=== PATIENT | male | born 1940 | race Caucasian/White ===

== ENCOUNTER → 2016-04-15 | Outpatient (CLI) | payer OTHER ==
[~2016-04-15] MED LIST: ASPI81TA28 PO; GLIP5TAB11 PO; HYZ/50125 PO; INSDGI SC; METF-384 PO
[2016-04-15 16:29] LABS: CHOLESTEROL/HDL RATIO 4.3
[2016-04-16 06:24] LABS: ESTIMATED AVERAGE GLUCOSE 212 mg/dl; HA1C FLAG Normal (Normal)
== END | disposition home or self-care (01) ==
LOC: C.LAB1850 14:43
PROVIDERS: ATTEND Nurse Practitioner Family
DX: E11.65 Type 2 diabetes mellitus with hyperglycemia (principal)

== ENCOUNTER → 2016-06-24 | Outpatient (CLI) | payer OTHER ==
--- NOTE | 2016-06-24 11:24 | DIAGNOSTIC IMAGING REPORT ---
CHEST 2 VIEWS ROUTINE HISTORY: DRY COUGH COMPARISON: Chest 06/09/2010. FINDINGS: No pleural effusions. No pneumothorax. Symmetric nodular densities at the lung bases favor nipple shadows. No new focal lung consolidations to suggest pneumonia. No evidence for pulmonary edema. The heart remains mildly enlarged. Stable mild mediastinal widening. IMPRESSION: No significant change compared to the prior study. No acute process. Electronically signed by: Leo Butt M.D. 06/24/2016 11:23 AM Dictated Date/Time: 06/24/2016 11:14 AM
== END | disposition home or self-care (01) ==
LOC: C.RAD 10:52
PROVIDERS: ATTEND Physician Assistant
DX: R05 Cough (principal)

== ENCOUNTER → 2016-08-19 | Outpatient (CLI) | payer OTHER ==
[2016-08-20 06:39] LABS: ESTIMATED AVERAGE GLUCOSE 214 mg/dl; HA1C FLAG Normal (Normal)
== END | disposition home or self-care (01) ==
LOC: C.LAB1850 14:51
PROVIDERS: ATTEND Nurse Practitioner Family
DX: E11.65 Type 2 diabetes mellitus with hyperglycemia (principal)

== ENCOUNTER → 2016-11-04 | Outpatient (CLI) | payer OTHER ==
--- NOTE | 2016-11-04 15:41 | ECHOCARDIOGRAM REPORT ---
*NOTICE TO RECEIVING [employer] AGENCY This information is strictly Confidential and protected under [place] law. [place] law prohibits you from making any further disclosure of this information unless further disclosure is expressly permitted by the written consent of the person to whom it pertains or is authorized by law. A general authorization for the release of medical or other information is not sufficient for this purpose. Hospital accepts no responsibility if the information is made available to any other person, INCLUDING THE PATIENT. Interpretation Summary * Name: TEOFILO WILKERSON Study Date: 11/04/2016 12:26 PM BP: 150/69 mmHg * Patient Location: [facility], [place] HR: 69 * : 1940 (M/d/yyyy) Gender: Male Height: 72 in * Age: 76 yrs Ethnicity: [place] Weight: 275 lb * Ordering Physician: Maryanne Fitzgerald * Referring Physician: Maryanne Fitzgerald PA-C * Performed By: Caroline Elliott RDCS * * Reason For Study: VALVULAR HEART DISEASE, FATIGUE, AO VALVE SCLEROSIS * BSA: 2.4 m2 * -- Conclusions -- * 1. Normal LV size, moderate concentric LVH. * 2. Normal LV systolic function. LVEF 55-60%. No regional wall motion abnormalities. * 3. Normal RV size and function. * 4. Moderate aortic sclerosis without stenosis. * 5. Grade I diastolic dysfunction. * 6. Compared with prior study on 08/06/2014: No significant changes. Procedure Details * A complete two-dimensional transthoracic echocardiogram was performed (2D, M-mode, Doppler and color flow Doppler). Left Ventricle * The left ventricle is normal in size. * There is moderate concentric left ventricular hypertrophy. * Ejection Fraction = 55-60%. * No regional wall motion abnormalities noted. Right Ventricle * The right ventricle is grossly normal size. * The right ventricular systolic function is normal as assessed by tricuspid annular plane systolic excursion (TAPSE) (normal >1.5 cm). Atria * The left atrial size is normal. * Right atrial size is normal. * No ASD detected; PFO is not assessed. Mitral Valve * The mitral valve is grossly normal. * There is no mitral valve stenosis. * Significant mitral regurgitation is absent. Tricuspid Valve * The tricuspid valve is not well visualized, but is grossly normal. * There is trace tricuspid regurgitation. Aortic Valve * The aortic valve opens well. * Aortic valve sclerosis moderate, without significant aortic valvular stenosis. * No hemodynamically significant valvular aortic stenosis. * There is no significant aortic regurgitation. Pulmonic Valve * The pulmonary valve is inadequately visualized, but the Doppler data is adequate for interpretation. * There is no pulmonic valvular stenosis. * There is no significant pulmonary regurgitation. Great Vessels * The aortic root and proximal ascending aorta are normal sized. Pericardium/Pleural * There is no pericardial effusion. Left Ventricular Diastolic Function * Grade I diastolic dysfunction, (abnormal relaxation pattern). MMode 2D Measurements and Calculations IVSd 1.6 cm IVSs 1.9 cm LVIDd 4.5 cm LVIDs 3.0 cm LVPWd 1.6 cm LVPWs 1.7 cm IVS/LVPW 1.0 FS 32.3 % EDV(Teich) 92.0 ml ESV(Teich) 36.2 ml EF(Teich) 60.6 % EDV(cubed) 90.6 ml ESV(cubed) 28.2 ml EF(cubed) 68.9 % % IVS thick 17.7 % % LVPW thick 11.1 % LV mass(C)d 301.6 grams LV mass(C)dI 123.6 grams/m\S\2 LV mass(C)s 226.1 grams LV mass(C)sI 92.7 grams/m\S\2 SV(Teich) 55.8 ml SI(Teich) 22.9 ml/m\S\2 SV(cubed) 62.4 ml SI(cubed) 25.6 ml/m\S\2 Ao root diam 3.4 cm Ao root area 9.3 cm\S\2 LA dimension 3.8 cm LA/Ao 1.1 LVAd ap4 39.9 cm\S\2 LVLd ap4 9.7 cm EDV(MOD-sp4) 134.4 ml EDV(sp4-el) 139.1 ml LVAs ap4 23.5 cm\S\2 LVLs ap4 8.5 cm ESV(MOD-sp4) 59.4 ml ESV(sp4-el) 55.6 ml EF(MOD-sp4) 55.8 % EF(sp4-el) 60.0 % LVAd ap2 45.4 cm\S\2 LVLd ap2 9.9 cm EDV(MOD-sp2) 176.7 ml EDV(sp2-el) 177.4 ml LVAs ap2 26.5 cm\S\2 LVLs ap2 8.2 cm ESV(MOD-sp2) 79.0 ml ESV(sp2-el) 73.2 ml EF(MOD-sp2) 55.3 % EF(sp2-el) 58.7 % LVLd %diff 1.5 % EDV(MOD-bp) 153.5 ml LVLs %diff -3.79 % ESV(MOD-bp) 69.7 ml EF(MOD-bp) 54.6 % SV(MOD-sp4) 75.0 ml SI(MOD-sp4) 30.8 ml/m\S\2 SV(MOD-sp2) 97.8 ml SI(MOD-sp2) 40.1 ml/m\S\2 SV(MOD-bp) 83.8 ml SI(MOD-bp) 34.4 ml/m\S\2 SV(sp4-el) 83.5 ml SI(sp4-el) 34.2 ml/m\S\2 SV(sp2-el) 104.2 ml SI(sp2-el) 42.7 ml/m\S\2 Doppler Measurements and Calculations MV E max harshil 75.7 cm/sec MV A max harshil 109.1 cm/sec MV E/A 0.69 MV dec time 0.33 sec Ao V2 max 179.2 cm/sec Ao max PG 12.8 mmHg Ao max PG (full) 7.4 mmHg Ao V2 mean 130.6 cm/sec Ao mean PG 7.4 mmHg Ao mean PG (full) 4.5 mmHg Ao V2 VTI 38.6 cm LV V1 max PG 5.4 mmHg LV V1 mean PG 2.9 mmHg LV V1 max 116.5 cm/sec LV V1 mean 80.5 cm/sec LV V1 VTI 23.2 cm SV(Ao) 357.7 ml SI(Ao) 146.6 ml/m\S\2
== END | disposition home or self-care (01) ==
LOC: C.CPL 12:21
PROVIDERS: ATTEND Physician Assistant
DX: R53.83 Other fatigue (principal); I35.8 Other nonrheumatic aortic valve disorders

== ENCOUNTER → 2016-12-21 | Outpatient (CLI) | payer OTHER ==
[2016-12-21 16:30] LABS: BLOOD UREA NITROGEN 24 mg/dl (7-18); BUN/CREATININE RATIO 24.5 (10-20); CALCIUM 8.9 mg/dl (8.5-10.1); CARBON DIOXIDE 28 mmol/L (21-32); CHLORIDE 102 mmol/L (98-107); CREATININE 0.99 mg/dl (0.60-1.40); GLUCOSE 204 mg/dl (70-99); POTASSIUM 3.8 mmol/L (3.5-5.1); SODIUM 138 mmol/L (136-145)
[2016-12-21 16:41] LABS: THYROID STIMULATING HORMONE 0.399 uIu/ml (0.300-4.500)
[2016-12-21 18:02] LABS: RATIO 14.9 mcg/mg (0-30.0)
[2016-12-21 18:35] LABS: ESTIMATED AVERAGE GLUCOSE 192 mg/dl; HA1C FLAG Normal (Normal)
== END | disposition home or self-care (01) ==
LOC: C.LAB1850 15:27
PROVIDERS: ATTEND Nurse Practitioner Family
DX: E11.49 Type 2 diabetes mellitus with other diabetic neurological complication (principal)

== ENCOUNTER → 2017-11-17 | Outpatient (CLI) | payer OTHER ==
--- NOTE | 2017-11-17 12:32 | DIAGNOSTIC IMAGING REPORT ---
ULTRASOUND OF THE THYROID GLAND CLINICAL HISTORY: Abnormal thyroid gland imaging. COMPARISON STUDY: Chest CT dated 09/03/2017. TECHNIQUE: Real-time, grayscale, and color flow sonography of the thyroid gland is performed utilizing a high-frequency linear transducer. Images are reviewed in the transverse and longitudinal planes. FINDINGS: Right lobe: The right lobe of the thyroid gland is normal in size and heterogeneous in echotexture, measuring 5.2 x 3.3 x 3.0 cm. Scattered tiny calcifications are noted. Left lobe: The left lobe of the thyroid gland is normal in size and heterogeneous in echotexture, measuring 4.2 x 2.1 x 2.6 cm. Isthmus: The thyroid isthmus appears mildly thickened and heterogeneous, measuring 0.6 cm in AP diameter. IMPRESSION: 1. The thyroid gland is normal in size and heterogeneous in echotexture. Correlation with serum thyroid function studies is recommended. 2. No discrete thyroid lesion is identified. Electronically signed by: Rashid Curtis M.D. 11/17/2017 12:30 PM Dictated Date/Time: 11/17/2017 12:28 PM
== END | disposition home or self-care (01) ==
LOC: C.ULTR 11:34
PROVIDERS: ATTEND Physician Assistant
DX: R93.8 Abnormal findings on diagnostic imaging of other specified body structures (principal)

== ENCOUNTER 2022-10-10 19:14 | Inpatient (IN) ==
[2022-10-10] MEDS ORDERED: SODIUM CHLORIDE 0.9% 1000ML 1,000 ML IV STA (19:40)
[2022-10-10] MEDS ORDERED: fentaNYL citrate PF 100 MCG/2 ML VIAL IV STA (19:40)
[2022-10-10] MEDS ORDERED: ONDANSETRON INJ 2 MG/ML 2 ML VIAL IV STA (19:40)
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
[2022-10-10 20:02] LABS: Hematocrit (blood only) 46.2 % (42.0-52.0); Hemoglobin 15.1 g/dl (14.0-18.0); Mean Corpuscular Hemoglobin 28.3 pg (25.0-34.0); Mean Corpuscular Hgb Conc 32.7 g/dL (32.0-36.0); Mean Corpuscular Volume 86.5 fL (80.0-100.0); Mean Platelet Volume 10.7 fL (9.4-12.4); Platelet Count 195 K/uL (130-400); RDW Standard Deviation 44.5 fL (36.4-46.3); Red Blood Count 5.34 M/uL (4.70-6.10); White Blood Count 9.77 K/ul (4.8-10.8)
--- NOTE | 2022-10-10 20:15 | XRay Report ---
XR chest 1V portable HISTORY: 82 years-old Male cough acute cough COMPARISON: 11/07/2020 TECHNIQUE: AP view of the chest FINDINGS: Cardiac silhouette is enlarged. Moderate right pleural effusion with right basilar consolidation. Ath erosclerosis of the aorta. No pneumothorax or overt pulmonary edema. The left lung is generally clear . Cervical spinal fusion hardware. Degenerative changes of the shoulders and spine. IMPRESSION: 1. Moderate right pleural effusion with right basilar consolidation. 2. Cardiomegaly without overt pulmonary edema. ACT 112: Negative or not required by law. The above report was generated using voice recognition software. It may contain grammatical, syntax o r spelling errors. Electronically signed by: Cheo Shi M.D. 10/10/2022 8:14 PM
[2022-10-10 20:24] LABS: Albumin Level 4.4 gm/dl (3.4-5.0); Anion Gap 10 (3-11); Calcium 9.7 mg/dl (8.6-10.3); Carbon Dioxide 28 mmol/L (21-32); Chloride 106 mmol/L (98-107); Potassium 3.3 mmol/L (3.5-5.1); Sodium 144 mmol/L (136-145)
[2022-10-10 20:30] LABS: BUN Creatinine Ratio 28.5 (10-20); Blood Urea Nitrogen 35 mg/dl (6-23); Est GFR (African American) 63.4 ml/min; Est GFR (Non-African American) 54.7 ml/min; Glucose 164 mg/dl (70-99(Fasting)); Troponin I High Sensitivity 12.5 pg/ml (0-20)
[2022-10-10] MEDS ORDERED: OPTIRAY 320 100ml IV ONE (20:47)
[2022-10-10 21:22] LABS: Appearance Urine Cloudy (Clear); Bacteria Urine Automated 4+ (Negative); Bilirubin Urine Negative (Negative); Blood Urine 2+ (Negative); Color Urine Dark Yellow; Epithelial Cell Urine Auto 0-5 /lpf (0-5); Glucose Urine UA Trace (Negative); Ketones Urine Trace (Negative); Leukocyte Esterase Urine Trace (Negative); Nitrite Urine Positive (Negative); Protein Urine 2+ (Negative); RBC Urine Automated 0-4 /hpf (0-4); Specific Gravity Urine > 1.045 (1.000-1.030); Urobilinogen Urine Negative (Negative); WBC Urine Automated >30 /hpf (0-5); pH Urine 5.5 (4.5-7.5)
[2022-10-10 21:27] LABS: Influenza A virus by PCR Negative (Neg); Influenza B virus by PCR Negative (Neg); RSV by PCR Negative (Neg); SARS CoV2 RNA(COVID-19) Ceph NEGATIVE (Negative)
[2022-10-10 21:28] LABS: Lipase < 3 U/L (11-82)
[2022-10-10 21:29] LABS: Alanine Aminotransferase 9 U/L (7-52); Albumin Globulin Ratio 1.3 (0.9-2); Alkaline Phosphatase 83 U/L (34-104); Aspartate Aminotransferase 13 U/L (13-39); Globulin 3.5 gm/dl (2.5-4.0); Total Protein 7.9 gm/dl (6.0-8.3)
[2022-10-10] MEDS ORDERED: PIPERACILLIN/TAZOBACTAM 4.5 GM/120 ML BAG IV ONE (21:51)
[2022-10-10 22:02] LABS: Basophils # (auto) 0.04 K/uL (0-0.2); Basophils % (auto) 0.4 %; Eosinophils # (auto) 0.02 K/uL (0-0.50); Eosinophils % (auto) 0.2 %; Immature Granulocytes # (auto) 0.04 K/uL (0.01-0.20); Immature Granulocytes % (auto) 0.4 %; Lymphocytes % (auto) 6.1 %; Monocytes # (auto) 0.79 K/uL (0.11-0.59); Monocytes % (auto) 8.1 %; Neutrophils # (auto) 8.28 K/uL (1.40-6.50); Neutrophils % (auto) 84.8 %
--- NOTE | 2022-10-10 22:41 | CT Scan Report ---
Exam(s): CT ABDOMEN + PELVIS With Contrast IV Amt: 94ML OPITRAY 320 EXAM: CT Abdomen and Pelvis With Intravenous Contrast CLINICAL HISTORY: Pain and nausea. TECHNIQUE: Axial computed tomography images of the abdomen and pelvis with intravenous contrast. CTDI is 27.91 mGy and DLP is 1481.01 mGy-cm. Automated exposure control was utilized for the study. A dose lowering technique was utilized adhering to the principles of ALARA. CONTRAST: Patient received 94ML OPITRAY 320 of IV contrast COMPARISON: CT abdomen and pelvis 06/10/2018 FINDINGS: Lung bases: Moderate right airspace opacity with adjacent atelectasis. ABDOMEN: Liver: Unremarkable. No mass. Gallbladder and bile ducts: Unremarkable. No calcified stones. No ductal dilation. Pancreas: Unremarkable. No mass. No ductal dilation. Spleen: Unremarkable. No splenomegaly. Adrenals: Unremarkable. No mass. Kidneys and ureters: There is a simple right renal cyst. There is a hyperdense right renal cyst measuring 2.2 cm. No hydronephrosis. Stomach and bowel: Small bowel obstruction with a transition point in the left lower quadrant pain No mucosal thickening. PELVIS: Appendix: No findings to suggest acute appendicitis. Bladder: Unremarkable. No mass. Reproductive: Unremarkable as visualized. ABDOMEN and PELVIS: Intraperitoneal space: Unremarkable. No free air. No significant fluid collection. Bones/joints: There are degenerative changes of the spine. No fracture. No dislocation. Soft tissues: Unremarkable. Vasculature: Moderate atherosclerosis. No abdominal aortic aneurysm. Lymph nodes: Unremarkable. No enlarged lymph nodes. IMPRESSION: 1. Small bowel obstruction with a transition point in the left lower quadrant pain 2. There is a hyperdense right renal cyst measuring 2.2 cm. This is new since the prior examination. This is concerning for neoplasm. 3. Moderate right airspace opacity with adjacent atelectasis. Communications: Call Doctor Pneumoperitoneum, new or unexpected Electronically signed by: Emmie Nash MD 10/10/22 22:40 PM
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
[2022-10-11 00:43] LABS: Phosphorus 2.7 mg/dl (2.5-4.9)
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
[2022-10-11] MEDS ORDERED: DEXTROSE 50% 50 ML SYRINGE IV PRN (02:49)
[2022-10-11] MEDS ORDERED: GLUCOSE 40% GEL 15 GM TUBE PO PRN (02:49)
[2022-10-11] MEDS ORDERED: PHARMACY GLYCEMIC MGMT CONSULT PRN (02:49)
[2022-10-11] MEDS ORDERED: NITROGLYCERIN SL 0.4 MG/TAB TAB SL PRN (02:49)
[2022-10-11] MEDS ORDERED: GLUCOSE 10 TAB/TUBE PO PRN (02:49)
[2022-10-11] MEDS ORDERED: CARBOHYDRATES FOR HYPOGLYCEMIA PO PRN (02:49)
[2022-10-11] MEDS ORDERED: ONDANSETRON INJ 2 MG/ML 2 ML VIAL IV PRN ×2 (02:49→09:43)
[2022-10-11] MEDS ORDERED: GLUCAGON FOR INJ 1 MG VIAL SQ PRN (02:49)
[2022-10-11] MEDS ORDERED: INSULIN ASPART PER UNIT CHARGE SC SCH (02:49)
[2022-10-11] MEDS: SODIUM CHLORIDE 0.9% 1000ML 1,000 ML IV SCH ×4 (02:52→23:55)
[2022-10-11] MEDS: DOXYCYCLINE HYCLATE 100 MG in DEXTROSE 5% 100 ML IV SCH ×2 (04:34→15:27)
[2022-10-11] MEDS: INSULIN ASPART PER UNIT CHARGE SC SCH ×4 (05:55→23:56)
--- NOTE | 2022-10-11 06:01 | Surgery Progress Note ---
Date of Service October 11, 2022 Assessment & Plan (1) Small bowel obstruction: Plan: The patient has been admitted on the hospitalist service. From a surgical perspective we recommend the following: Continue n.p.o. status Continue NG tube to low continuous suction. This can be removed once patient has improvement of his abdominal exam and return of bowel function. Oral intake can be advanced beginning with sips of clear liquids once NG tube is able to be removed Continue IV fluids for hydration while n.p.o. Continue analgesics Continue antiemetics Patient is receiving antibiotics in the form of Zosyn and doxycycline for underlying pneumonia as well as urinary tract infection. Antibiotics to be further tailored based on culture data once available Patient is noted to have a renal lesion measuring 2.2 cm on the right kidney. The patient notes that he does have outpatient follow-up arranged with Dr. Tomasz Goodwin of [facility]. Lovenox is in place for DVT prevention Additional recommendations to be forthcoming based on his clinical course as it unfolds Admission and Anticipated Discharge Date Admission Date: October 11, 2022 Supervising Physician Co-Signing Physician Notes Dr. Crabtree seems to be stable but his abdomen is very distended-he had significant output from his NG for severe gastric distention This is likely because of his small bowel obstruction-we will check a KUB I am concerned we may need to proceed with surgery today depending on his KUB and status I will discuss this with his daughterTammy We will hold his Lovenox for now Subjective Patient is currently resting comfortably in bed. He notes his breathing feels comfortable at the present time. He notes that since NG tube been placed he has had some improvement of his abdominal symptomatology. He does deny any worsening abdominal pain. Since admission he has not passed any flatus or had a bowel movement. Review of Systems Gastrointestinal: Abdomen is rotund with mild distention. It is nonrigid. There is no rebound tenderness or guarding. There is minimal pain with palpation. NG tube is in place and is drained 1700 cc since insertion. Results & Data Vital Signs (Past 12 Hours) Vital Signs Temp Pulse Pulse Resp BP BP Pulse Ox 10/11/22 02:49 10/11/22 02:49 36.9 C 59 L 20 151/69 H 96 10/11/22 02:12 10/10/22 23:40 89 10/11/22 00:34 90 20 115/65 97 10/10/22 22:14 90 20 160/99 H 95 10/10/22 19:38 82 10/10/22 20:34 85 19 95 10/10/22 20:34 19 88 L 10/10/22 19:55 78 18 168/92 H 96 10/10/22 19:55 94 10/10/22 19:20 95 10/10/22 19:14 36.8 C 84 20 119/77 95 O2 Del Method O2 Flow Rate 10/11/22 02:49 Oxymask 4 10/11/22 02:49 Oxymask 4 10/11/22 02:12 Oxymask 4 10/10/22 23:40 10/11/22 00:34 Oxymask 4 10/10/22 22:14 Nasal Cannula 2 10/10/22 19:38 10/10/22 20:34 Nasal Cannula 2 10/10/22 20:34 Room Air 10/10/22 19:55 Room Air 10/10/22 19:55 Room Air 10/10/22 19:20 Room Air 10/10/22 19:14 Room Air PG Care Time/CCT Total # of Minutes Spent Total Time Spent with Patient: Total time spent is greater than 50% in coordination of care (as documented) at patient's floor/unit and/or counseling patient: Coding Level of Care Code 09399 SUB INP/OBS CARE 04/29MIN Diagnoses Small bowel obstruction K56.609
--- NOTE | 2022-10-11 06:21 | Pharmacy Report ---
Pharmacy Glycemic Short Note 2 - Date of Service October 11, 2022 - Glycemic Short BSG Results (Last 24 hours): 10/10/22 10/11/22 10/11/22 19:29 03:48 05:44 Glucose 164 H POC Glucose 102 H 105 H OUTPATIENT ANTIDIABETIC REGIMEN: * Novolin 70/30 38 units SQ qAM, 48 units SQ qPM * HbA1c: pending w/ AM labs (8.2% 01/2020) ASSESSMENT: * Mr Castillo is an 82yo diabetic M admitted with SBO. * He is ordered IV Zosyn and doxycycline and is currently NPO. * BSGs have been below goal thus far. Will use Novolog only for now and initiate some NPH once BSGs above/within goal. * Pharmacy will continue to follow and adjust regimen as indicated. PLAN FOR INPATIENT GLYCEMIC CONTROL: * Basal insulin * NPH -- dosing to be determined pending BSG trend/NPO status * Bolus insulin * NovoLog per scale ACHS or Q6hrs while NPO * Goal Range: Low 110 mg/dL - High 150 mg/dL * Correction Factor: 20 mg/dL/unit * Nutritional / Prandial insulin per carb ratio of 1 unit per 8 grams CHO c onsumed
[2022-10-11 06:42] LABS: Hematocrit (blood only) 43.2 % (42.0-52.0); Hemoglobin 14.3 g/dl (14.0-18.0); Mean Corpuscular Hemoglobin 28.4 pg (25.0-34.0); Mean Corpuscular Hgb Conc 33.1 g/dL (32.0-36.0); Mean Corpuscular Volume 85.7 fL (80.0-100.0); Mean Platelet Volume 10.7 fL (9.4-12.4); Platelet Count 177 K/uL (130-400); RDW Coefficient of Variation 14.1 % (11.5-14.5); RDW Standard Deviation 43.6 fL (36.4-46.3); Red Blood Count 5.04 M/uL (4.70-6.10); White Blood Count 6.29 K/ul (4.8-10.8)
[2022-10-11] MEDS: PIPERACILLIN/TAZOBACTAM 4.5 GM in DEXTROSE 5% 100 ML IV SCH ×3 (06:55→21:18)
[2022-10-11 07:01] LABS: BUN Creatinine Ratio 34.3 (10-20); Creatinine Clr Calc Pharmacy 73.5 ml/min; Est GFR (African American) 79.5 ml/min; Est GFR (Non-African American) 68.6 ml/min; Potassium 3.1 mmol/L (3.5-5.1)
--- NOTE | 2022-10-11 07:05 | Electrocardiogram Report ---
Test Reason : Blood Pressure : / mmHG Vent. Rate : 087 BPM Atrial Rate : 087 BPM P-R Int : 206 ms QRS Dur : 106 ms QT Int : 388 ms P-R-T Axes : 093 -10 073 degrees QTc Int : 466 ms Sinus rhythm with frequent Premature ventricular complexes Minimal voltage criteria for LVH, may be normal variant Poor R wave progression, consider anterior MD vs. lead placement vs. LVH Abnormal ECG When compared with ECG of 07-NOV-2020 15:50, Premature ventricular complexes are now Present ND interval has decreased T wave inversion now evident in Lateral leads Confirmed by Shay Caban ([id number]) on 10/11/2022 7:05:43 AM Referred By: REFERRED SELF Confirmed By:Farooq Caban
[2022-10-11 07:08] LABS: Troponin I High Sensitivity 16.9 pg/ml (0-20)
[2022-10-11 07:09] LABS: Basophils # (auto) 0.02 K/uL (0-0.2); Basophils % (auto) 0.3 %; Immature Granulocytes # (auto) 0.01 K/uL (0.01-0.20); Immature Granulocytes % (auto) 0.2 %; Lymphocytes # (auto) 0.37 K/uL (1.2-3.4); Lymphocytes % (auto) 5.9 %; Monocytes # (auto) 0.98 K/uL (0.11-0.59); Monocytes % (auto) 15.6 %; Neutrophils # (auto) 4.91 K/uL (1.40-6.50)
--- NOTE | 2022-10-11 08:15 | XRay Report ---
KUB HISTORY: Acute generalized abdominal pain verify NG tube placement COMPARISON: CT of same day FINDINGS: Persistent small bowel obstruction. Status post placement of an enteric tube with distal ti p projecting over the gastric body. Cardiomegaly with right pleural effusion and right greater than l eft bibasilar consolidation. No renal calculi. No ureteral calculi. No pneumoperitoneum or pneumatos is. No fracture. IMPRESSION: 1. Status post placement of enteric tube with distal tip projected over the gastric body. 2. Persistent small bowel obstruction. 3. Right pleural effusion with right basilar predominant consolidation. ACT 112: Negative or not required by law. The above report was generated using voice recognition software. It may contain grammatical, syntax o r spelling errors. Electronically signed by: Cheo Shi M.D. 10/11/2022 8:14 AM
--- NOTE | 2022-10-11 08:17 | XRay Report ---
KUB HISTORY: Persistent small bowel obstruction r/o sbo COMPARISON: KUB 10/10/2022 FINDINGS: Persistent small bowel obstruction, now with small bowel loops measuring up to 5.5 cm, prev iously 5.0 cm. Status post placement of an enteric tube with distal tip projecting over the gastric b sissy. Decreased gaseous distention of the stomach. Cardiomegaly with right pleural effusion and right greater than left bibasilar consolidation. No renal calculi. No ureteral calculi. No pneumoperitoneu m or pneumatosis. Contrast noted within the urinary bladder lumen. Urinary bladder diverticulum may b e sequela of chronic bladder outlet obstruction. No fracture. IMPRESSION: 1. Enteric tube terminates within the stomach. 2. Persistent small bowel obstruction with mildly progressed small bowel distention. 3. Right pleural effusion with right basilar predominant consolidation. ACT 112: Negative or not required by law. The above report was generated using voice recognition software. It may contain grammatical, syntax o r spelling errors. Electronically signed by: Cheo Shi M.D. 10/11/2022 8:15 AM
[2022-10-11] MEDS ORDERED: fentaNYL citrate PF 100 MCG/2 ML VIAL ONE (08:52)
[2022-10-11] MEDS ORDERED: ASPIRIN 81 MG CHEW PO SCH (09:00)
[2022-10-11] MEDS: POTASSIUM CHLORIDE / WTR 10 MEQ/100 ML PLCT IV SCH ×3 (09:27→10:31)
[2022-10-11] MEDS ORDERED: SUCCINYLCHOLINE CHLORIDE 20 MG/ML 10 ML VIAL IV ONE (09:40)
[2022-10-11] MEDS ORDERED: PROPOFOL IV EMULSION 10 MG/ML 20 ML VIAL IV ONE (09:40)
[2022-10-11] MEDS ORDERED: ROCURONIUM BROMIDE 10 MG/ML 5 ML VIAL IV ONE (09:40)
[2022-10-11] MEDS ORDERED: LIDOCAINE 2% 2 ML VIAL/AMP(20MG/ML) INFIL ONE (09:40)
[2022-10-11] MEDS ORDERED: ONDANSETRON INJ 2 MG/ML 2 ML VIAL ONE (09:40)
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
[2022-10-11] MEDS ORDERED: ATROPINE SULFATE 0.1 MG/ML 10ML SYR IV PRN (09:43)
[2022-10-11] MEDS ORDERED: HYDROmorphone INJ 2 MG/ML SYR/VIAL IV PRN (09:43)
[2022-10-11] MEDS ORDERED: fentaNYL citrate PF 100 MCG/2 ML VIAL IV PRN (09:43)
[2022-10-11] MEDS ORDERED: ePHEDrine sulfate 50 MG/ML AMP IV PRN (09:43)
[2022-10-11] MEDS ORDERED: PROMETHAZINE HCL 12.5 MG in SODIUM CHLORIDE 0.9% 50 ML IV PRN (09:43)
--- NOTE | 2022-10-11 09:43 | History & Physical Bridge Note ---
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
[2022-10-11] MEDS ORDERED: PHENYLEPHRINE 100MCG/ML 5ML SYR ONE (10:15)
[2022-10-11] MEDS ORDERED: ALBUTEROL HFA 8 GM INHALER INH ONE (10:24)
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
[2022-10-11] MEDS ORDERED: SUGAMMADEX SODIUM 200 MG/2 ML VIAL IV ONE (10:39)
--- NOTE | 2022-10-11 10:49 | Post Operative Brief Note ---
PG Immediate Post Op with CF Date of Surgery October 11, 2022 Pre & Post Diagnosis Operation Date: 10/11/22 14:00 Pre-Op Diagnosis: Small bowel obstruction. Post-Op Diagnosis: Small bowel obstruction. Internal hernia I identified the patient and participated in the time-out.: Yes Procedure Operation Date: 10/11/22 14:00 Actual Procedures p Abdominal exploration, lysis of adhesions, closure of internal hernia. - Abhishek San MD, FACS Surgeon Abhishek San MD, FACS Flight Control Specialist Nurses Estimated Blood Loss 10 Findings Consistent with Post-Op Diagnosis Patient has small bowel obstruction from an internal hernia within the mesentery causing severe dilation of the small bowel and hemorrhagic changes There is also some hemorrhagic change in the mesentery near this area The hernia defect was closed Small bowel was completely viable Drains March Catheter
--- NOTE | 2022-10-11 10:56 | Operative Report ---
PG Post Operative Report Pre & Post Diagnosis Operation Date: 10/11/22 14:00 Pre-Op Diagnosis: Small bowel obstruction. Post-Op Diagnosis: Small bowel obstruction. Internal hernia I identified the patient and participated in the time-out.: Yes Procedure Operation Date: 10/11/22 14:00 Actual Procedures p Abdominal exploration, lysis of adhesions, closure of internal hernia. - Abhishek San MD, FACS Surgeon Abhishek San MD, FACS Academic Affairs Manager Nurses Estimated Blood Loss 10 Findings Consistent with Post-Op Diagnosis Patient had an internal hernia within the mesentery causing a sac and obstruction of the small bowel There are hemorrhagic changes in the proximal small bowel which was severely dilated to 5.5 cm plus There is some hemorrhagic change within the mesentery also The bowel was completely viable Specimens None Description of Procedure Patient is brought in the operating room placed operative table supine position he had pneumatic stockings and nasogastric tube, March catheter was placed His abdomen was prepped and draped in usual fashion Midline incision was made above the umbilicus carried dissection down into the abdomen-encountering significant serous fluid Small bowel was severely dilated proximally to at least 5.5 cm, it was traced from the ligament of Treitz to the ileum at the cecal level Some of the bowel was hemorrhagic it was brought out onto the abdomen and upon exploration I was able to find an area of hemorrhagic change within the mesentery where there was a redundant sac causing internal hernia This area was closed by imbricating the mesentery using 0 chromic suture from the edge of the bowel down to the root of the mesentery closing the site The bowel was completely viable, no resection was necessary Because of the bowel being severely dilated I felt the decompression would be necessary-we performed an enterotomy of approximately 2 cm decompressing the bowel into a basin The enterotomy was closed in 2 layers with a seromuscular layer of running 2-0 chromic and a imbricating seromuscular layer of interrupted 3-0 silk silk The abdomen was irrigated with antibiotic solution The NG tube was replaced from a 14 Citizen [place] to a 18 Citizen [place] Fascia closed using both interrupted and running #1 PDS suture Skin reapproximated using birdie intermittently Transferred to intensive care unit in stable condition I attest to the content of the Intraoperative Record and any orders documented therein. Any exceptions are noted below.
--- NOTE | 2022-10-11 11:28 | Anesthesiology Progress Note ---
Date of Service October 11, 2022 Anesthesia Post Procedure Vital Signs Vital Signs: Temp Pulse Pulse Resp BP BP Pulse Ox 10/11/22 11:20 36.2 C L 88 24 183/91 H 95 10/11/22 11:10 88 24 175/93 H 95 10/11/22 11:03 36.0 C L 85 18 168/83 H 93 10/11/22 07:00 10/11/22 07:42 36.6 C 77 20 166/75 H 95 10/11/22 02:49 10/11/22 02:49 36.9 C 59 L 20 151/69 H 96 10/11/22 02:12 10/10/22 23:40 89 10/11/22 00:34 90 20 115/65 97 10/10/22 22:14 90 20 160/99 H 95 10/10/22 19:38 82 10/10/22 20:34 85 19 95 10/10/22 20:34 19 88 L 10/10/22 19:55 78 18 168/92 H 96 10/10/22 19:55 94 10/10/22 19:20 95 10/10/22 19:14 36.8 C 84 20 119/77 95 O2 Del Method O2 Flow Rate 10/11/22 11:20 Oxymask 5 10/11/22 11:10 Oxymask 5 10/11/22 11:03 Oxymask 5 10/11/22 07:00 Nasal Cannula 4 10/11/22 07:42 Oxymask 10/11/22 02:49 Oxymask 4 10/11/22 02:49 Oxymask 4 10/11/22 02:12 Oxymask 4 10/10/22 23:40 10/11/22 00:34 Oxymask 4 10/10/22 22:14 Nasal Cannula 2 10/10/22 19:38 10/10/22 20:34 Nasal Cannula 2 10/10/22 20:34 Room Air 10/10/22 19:55 Room Air 10/10/22 19:55 Room Air 10/10/22 19:20 Room Air 10/10/22 19:14 Room Air Pain Intensity Bilateral Chest: Pain Intensity: 9 Transfer of Care Handoff Completed per policy Notes Mental Status: alert / awake / arousable and participated in evaluation Patient Amnestic to Procedure: Yes Nausea / Vomiting: adequately controlled Pain: adequately controlled Airway Patency, RR, SpO2: stable & adequate BP & HR: stable & adequate Hydration State: stable & adequate Anesthetic Complications: no major complications apparent
[2022-10-11] MEDS: ICU Protocol for HYPERglycemia SCH ×3 (11:46→23:52)
[2022-10-11] MEDS: HYDROmorphone INJ 0.5 MG/0.5 ML SYR IV PRN ×3 (12:34→21:28)
[2022-10-11] MEDS: hydrALAZINE HCL 20 MG/ML VIAL IV PRN (12:42)
--- NOTE | 2022-10-11 14:04 | Procedure Note ---
Procedure Note Date of Service October 11, 2022 Note Procedure: Diagnostic therapeutic ultrasound-guided catheter thoracentesis Milieu Manager: Dr. Porfirio Queen Indication: Right pleural effusion Consent: Signed by patient and verified with timeout prior to procedure Anesthesia: 1% lidocaine without epinephrine local. Procedure: Consent was verified and timeout performed. Appropriate imaging studies were reviewed prior to the procedure. Patient was placed in a seated position and limited thoracic ultrasound was performed of the right chest. See separate imaging. Appropriate site above the diaphragm for thoracentesis was selected. The skin was prepped and draped in normal sterile fashion. Lidocaine was used for local analgesia. Fluid was aspirated via the finder needle. A small skin tavo was made with the scalpel and the catheter over the needle apparatus was advanced over the rib into the pleural space. Using the syringe one-way valve system, a total of 1350 mL's of creamy milky fluid was removed. The catheter was removed and observed to be intact. A sterile dressing was applied. Post procedure chest x-ray was ordered. Good lung sliding was appreciated postprocedure on the ultrasound Fluid was sent for labs, culture and cytology. Complications: None Blood loss: None Coding CPT Codes Pulmonary/Thoracic - Pulmonary and Thoracic: 83468 Thoracentesis w imaging ([place] [id number]) [facility] Procedure Codes (Charges) Pulmonary/Thoracic Procedure 1: Pulmonary and Thoracic: 56582 Thoracentesis w imaging
--- NOTE | 2022-10-11 14:24 | XRay Report ---
XR chest 1V portable HISTORY: 82 years-old Male post thoracentesis TO the patient with right pleural effusion COMPARISON: Chest CT of same day TECHNIQUE: AP view of the chest FINDINGS: Cardiac silhouette is enlarged. Enteric tube courses below the diaphragm with distal tip outside the [id number]. Mild bibasilar consolidation. There is improved aeration of the right lung base with d ecreased size of the right pleural effusion status post thoracentesis. No definite postprocedural pne umothorax identified. Cervical spinal fusion hardware. Bones appear grossly intact. IMPRESSION: 1. Decreased size of the right pleural effusion with improved aeration of the right lung base status post thoracentesis. 2. No postprocedural pneumothorax identified. 3. Enteric tube courses into the stomach. ACT 112: Negative or not required by law. The above report was generated using voice recognition software. It may contain grammatical, syntax o r spelling errors. Electronically signed by: Cheo Shi M.D. 10/11/2022 2:22 PM
[2022-10-11 14:55] LABS: Albumin Level 3.8 gm/dl (3.4-5.0); Bilirubin,Total 1.4 mg/dl (0.2-1.0); Total Protein 6.9 gm/dl (6.0-8.3)
[2022-10-11 15:01] LABS: Total Protein Pleural Fluid 5.1 gm/dl
[2022-10-11 15:21] LABS: Appearance Pleural Fluid Turbid; Color Pleural Fluid Other; Lymphocytes, Fluid 87 %; Mono,Macrophage,Mesothelial 10 %; Neutrophils, Fluid 3 %; RBC Pleural Fluid Auto 15000 /uL; Source Pleural Fluid Right Lung; WBC Pleural Fluid Auto 4101 /uL
[2022-10-12 05:02] LABS: Hematocrit (blood only) 39.5 % (42.0-52.0); Hemoglobin 12.9 g/dl (14.0-18.0); Mean Corpuscular Hemoglobin 28.3 pg (25.0-34.0); Mean Corpuscular Hgb Conc 32.7 g/dL (32.0-36.0); Mean Corpuscular Volume 86.6 fL (80.0-100.0); Mean Platelet Volume 10.7 fL (9.4-12.4); Platelet Count 143 K/uL (130-400); RDW Coefficient of Variation 14.5 % (11.5-14.5); RDW Standard Deviation 46.2 fL (36.4-46.3); Red Blood Count 4.56 M/uL (4.70-6.10); White Blood Count 9.79 K/ul (4.8-10.8)
[2022-10-12] MEDS: DOXYCYCLINE HYCLATE 100 MG in DEXTROSE 5% 100 ML IV SCH ×2 (05:18→17:00)
[2022-10-12] MEDS: PIPERACILLIN/TAZOBACTAM 4.5 GM in DEXTROSE 5% 100 ML IV SCH ×3 (05:19→22:00)
[2022-10-12] MEDS: INSULIN ASPART PER UNIT CHARGE SC SCH ×4 (05:43→23:39)
--- NOTE | 2022-10-12 06:33 | Surgery Progress Note ---
Date of Service October 12, 2022 Assessment & Plan (1) H/O exploratory laparotomy: Plan: Patient had a small bowel obstruction from an internal hernia with very dilated hyperemic hemorrhagic proximal small bowel His bowel was completely viable Internal hernia defect closed Right pleural effusion tapped-purulent looking fluid sent for studies Patient is actually doing very well and better than expected NG with 500 cc overnight-leave for now, may have ice chips Can be downgraded from ICU from surgical standpoint Admission and Anticipated Discharge Date Admission Date: October 11, 2022 Results & Data Vital Signs (Past 12 Hours) Vital Signs Temp Pulse Resp BP Pulse Ox O2 Del Method O2 Flow Rate 10/12/22 06:00 85 17 96 Nasal Cannula 2 10/12/22 06:00 143/75 H 10/12/22 05:30 87 25 H 94 10/12/22 05:00 80 26 H 94 10/12/22 05:00 135/73 10/12/22 04:30 82 26 H 96 10/12/22 04:00 80 12 95 10/12/22 04:00 129/70 10/12/22 03:30 80 19 95 10/12/22 03:00 36.7 C 78 25 H 96 10/12/22 03:00 127/73 10/12/22 02:30 78 26 H 97 10/12/22 02:00 79 23 96 10/12/22 02:00 112/67 10/12/22 01:30 81 25 H 96 10/12/22 01:00 83 24 91 10/12/22 01:00 121/72 10/12/22 00:30 81 25 H 95 10/12/22 00:01 83 33 H 78 L 10/12/22 00:01 134/87 10/12/22 00:00 36.9 C 84 28 H 92 10/11/22 23:30 83 24 96 10/11/22 23:00 83 25 H 96 Nasal Cannula 2 10/11/22 23:00 109/65 10/12/22 00:00 80 10/11/22 22:30 83 24 97 10/11/22 22:00 84 26 H 97 10/11/22 22:00 109/62 10/11/22 21:30 85 18 96 10/11/22 21:00 85 22 95 10/11/22 21:00 143/80 H 10/11/22 20:30 85 17 95 10/11/22 20:02 86 24 96 10/11/22 20:02 143/81 H 10/11/22 20:00 86 15 96 10/11/22 19:30 89 27 H 95 10/11/22 19:00 89 27 H 96 Nasal Cannula 3 10/11/22 19:00 126/68 10/11/22 21:52 Nasal Cannula 3 PG Care Time/CCT Total # of Minutes Spent Total Time Spent with Patient: Total time spent is greater than 50% in coordination of care (as documented) at patient's floor/unit and/or counseling patient: Coding Level of Care Code 89905 Post Operative Follow-Up Diagnoses H/O exploratory laparotomy Z98.890
[2022-10-12 06:57] LABS: Albumin Globulin Ratio 1.2 (0.9-2); Albumin Level 3.3 gm/dl (3.4-5.0); BUN Creatinine Ratio 32.9 (10-20); Bilirubin,Total 1.5 mg/dl (0.2-1.0); Calcium 8.2 mg/dl (8.6-10.3); Est GFR (African American) 47.9 ml/min; Est GFR (Non-African American) 41.4 ml/min; Globulin 2.7 gm/dl (2.5-4.0); Magnesium 1.8 mg/dl (1.7-2.4); Phosphorus 3.2 mg/dl (2.5-4.9); Potassium 3.2 mmol/L (3.5-5.1)
[2022-10-12] MEDS: HYDROmorphone INJ 0.5 MG/0.5 ML SYR IV PRN ×3 (07:34→20:02)
[2022-10-12 07:58] LABS: Estimated Average Glucose 154 mg/dl
[2022-10-12] MEDS ORDERED: LANTUS PER UNIT CHARGE SC ONE (08:00)
[2022-10-12] MEDS: ENOXAPARIN INJ 40 MG/0.4 ML SYR SQ SCH (08:10)
[2022-10-12] MEDS: SODIUM CHLORIDE 0.9% 1000ML 1,000 ML IV SCH (08:11)
--- NOTE | 2022-10-12 08:57 | XRay Report ---
XR chest 1V portable CLINICAL HISTORY: follow up s/p thoracentesis TECHNIQUE: Single frontal radiograph of the chest was obtained. Comparison: Comparison is made to chest radiograph 10/11/2022 FINDINGS: Lines and tubes are stable. ACDF is seen. The cardiomediastinal silhouette is stable. The lungs are c lear. Small right pleural effusion is possibly minimally more prominent than in the prior exam. No pn eumothorax. IMPRESSION: Possible minimal enlargement of the small right pleural effusion. No pneumothorax. ACT 112: Negative or not required by law. Electronically signed by: Israel Harper M.D. 10/12/2022 8:56 AM
[2022-10-12] MEDS: POTASSIUM CHLORIDE / WTR 10 MEQ/100 ML PLCT IV SCH ×3 (09:46→12:20)
[2022-10-12] MEDS: ICU Protocol for HYPERglycemia SCH ×4 (11:20→21:05)
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
--- NOTE | 2022-10-12 12:57 | Pharmacy Report ---
Pharmacy Glycemic Short Note 2 - Date of Service October 12, 2022 - Glycemic Short BSG Results (Last 24 hours): 10/11/22 10/11/22 10/12/22 17:55 23:45 04:44 Glucose 212 H POC Glucose 186 H 178 H 10/12/22 10/12/22 05:36 12:36 Glucose POC Glucose 209 H 187 H OUTPATIENT ANTIDIABETIC REGIMEN: * Novolin 70/30: 38 units SC AM, 48 units SC PM * HbA1c: 7.0% (10/11/22) ASSESSMENT: 10/12: * Patient has received 4 units of insulin total so far, all bolus. BSGs yesterday were: [phone] mg/dL. * Fasting BSG was 209 mg/dL this AM. Given patient remains NPO on POD #1 s/p exploratory laparotomy, will give a conservative one time dose of basal insulin now. Reassess basal insulin in the AM. * BSGs continuously daniel throughout the day yesterday. Will tighten correctional insulin today. * Remains on IV Zosyn and Doxycycline. 10/11: * Mr Castillo is an 82yo diabetic M admitted with SBO. * He is ordered IV Zosyn and doxycycline and is currently NPO. * BSGs have been below goal thus far. Will use Novolog only for now and initiate some NPH once BSGs above/within goal. * Pharmacy will continue to follow and adjust regimen as indicated. PLAN FOR INPATIENT GLYCEMIC CONTROL: * Basal insulin * Lantus 10 units SC x 1 this AM * Reassess basal needs in the AM * Bolus insulin * NovoLog per scale ACHS or Q6hrs while NPO * Goal Range: Low 110 mg/dL - High 150 mg/dL * Correction Factor: 15 mg/dL/unit * Nutritional / Prandial insulin per carb ratio of 1 unit per 6 grams CHO consumed
--- NOTE | 2022-10-12 14:02 | Pulmonology Progress Note ---
Date of Service October 12, 2022 Assessment & Plan (1) Pneumonia: Laterality: right Lung location: lower lobe of lung Pneumonia type: due to unspecified organism Qualified Code(s): J18.9 - Pneumonia, unspecified organism (2) GAVIOTA (obstructive sleep apnea): (3) Pleural effusion: Plan Impression: 82-year-old male admitted with small bowel obstruction status post laparotomy. Found incidentally to have an effusion which may have been present on thoracic spine imaging from November 2020. Fluid demonstrates an exudative lymphocytic predominant fluid with cytology and cultures pending. Recommendations: 1. Pleural effusion: Lymphocytic exudate. The appearance may have been suggestive of chylothorax. Pleural fluid cholesterol and triglycerides are currently pending. We will proceed with CT of the chest to evaluate for significant mediastinal adenopathy (lymphoma). No history of trauma to suggest thoracic duct injury. If fluid reaccumulates, will consider additional interventions depending on final characterization of fluid. Await final pathology. 2. Management the patient's other medical issues per primary admitting service. 3. Hypoxemia: Suspect secondary to splinting from upper abdominal surgery. Incentive spirometry and wean oxygen to maintain oxygen saturations greater than 90%. 4. The patient is on broad-spectrum antibiotics. The pleural fluid does not appear to be infected and with a lymphocytic predominance, do not think he requires antibiotics from a lung standpoint. Will defer to the primary service. We will continue to follow with you. 50 min reviewing case and coordinating care Admission and Anticipated Discharge Date Admission Date: October 11, 2022 Subjective Patient seen and examined. EMR reviewed. Discussed with outgoing landing signal officer. Review of Systems Review of Systems: All systems reviewed & are unremarkable except as noted in Subjective Physical Exam Constitutional: WD/WN, vitals as above Neck: trachea midline, no thyromegaly Respiratory: normal respiratory effort, lungs clear to auscultation Cardiovascular: RRR, no murmur, no edema Gastrointestinal (Abdomen): normal bowel sounds, soft, nontender, no hepatosplenomegaly Musculoskeletal: Extremities: extremities normal to inspection Skin: no rashes, warm and dry Neurologic: Nonfocal exam Lymphatic: no cervical lymphadenopathy Results & Data Results & Data Vital Signs (Past 12 Hours) Vital Signs Temp Pulse Resp BP Pulse Ox O2 Del Method O2 Flow Rate 10/12/22 13:00 77 24 97 10/12/22 13:00 163/85 H 10/12/22 12:39 169/91 H 10/12/22 12:39 78 24 97 10/12/22 12:00 81 25 H 97 10/12/22 12:00 163/84 H 10/12/22 11:00 80 27 H 94 10/12/22 11:00 167/86 H 10/12/22 10:00 81 26 H 95 10/12/22 10:00 150/84 H 10/12/22 09:00 80 10 L 96 10/12/22 09:00 146/70 H 10/12/22 08:00 84 25 H 95 10/12/22 08:00 136/74 10/12/22 07:01 146/64 H 10/12/22 07:01 87 23 94 10/12/22 07:00 86 30 H 94 10/12/22 08:00 Nasal Cannula 2 10/12/22 08:00 Nasal Cannula 10/12/22 08:00 87 10/12/22 06:00 85 17 96 Nasal Cannula 2 10/12/22 06:00 143/75 H 10/12/22 05:30 87 25 H 94 10/12/22 05:00 80 26 H 94 10/12/22 05:00 135/73 10/12/22 04:30 82 26 H 96 10/12/22 04:00 80 12 95 10/12/22 04:00 129/70 10/12/22 03:30 80 19 95 10/12/22 03:00 36.7 C 78 25 H 96 10/12/22 03:00 127/73 10/12/22 02:30 78 26 H 97 10/12/22 02:00 79 23 96 10/12/22 02:00 112/67 Laboratory Results 10/12/22 04:44 10/12/22 04:44 Oral fluid studies: Potential: 3% neutrophils, 87% lymphocytes, 10% mesothelial cells pH 7.44 pH 91 Total protein 5.1 Glucose 150 Amylase 12 Cholesterol and triglycerides pending Gram stain and culture no growth to date. Cells. No organisms Cytology pending Diagnostic Findings Postthoracentesis chest x-ray independently reviewed. PG Care Time/CCT Total # of Minutes Spent Total Time Spent with Patient: Total time spent is greater than 50% in coordination of care (as documented) at patient's floor/unit and/or counseling patient: Coding Level of Care Code 87780 SUB INP/OBS CARE 50MIN Diagnoses Pneumonia J18.9 Laterality: right Lung location: lower lobe of lung Pneumonia type: due to unspecified organism GAVIOTA (obstructive sleep apnea) G47.33 Pleural effusion J90
--- NOTE | 2022-10-12 15:16 | Hospitalist Progress Note ---
Date of Service October 12, 2022 Assessment & Plan (1) Pneumonia: Plan: 82-year-old male with past medical history significant for type 2 diabetes hyperlipidemia, sleep apnea, hypertension, obesity, BPH presents with cough, shortness of breath, nausea and abdominal pain radiating to the chest. Small bowel obstruction Seen by surgery S/p NG tube IV fluids, IV antiemetics, IV pain meds as needed S/p ex lap (10/11/22) w/ Dr. San Patient has small bowel obstruction from an internal hernia within the mesentery causing severe dilation of the small bowel and hemorrhagic changes There is also some hemorrhagic change in the mesentery near this area The hernia defect was closed Small bowel was completely viable Pneumonia Right-sided pleural effusion moderate CT chest obtained - 1. Loculated moderate sized right pleural effusion. 2. Dependent consolidation of the right lung suggestive of compressive atelectasis with near complete collapse of the right lower lobe. Underlying pneumonia would be difficult to exclude. 3. Prior granulomatous disease. 4. Cardiomegaly. 5. Trace upper abdominal ascites. ER started Zosyn which will be continued, doxycycline also added on admission IV fluids Follow the cultures Monitor med telemetry. Pulmonary medicine consulted and pt underwent thoracentesis on 10/11/22 w/Dr. Queen - 1300cc of milky fluid obtained. ? chylothorax Right renal mass Complex cyst, possible neoplasm Was also seen on CAT scan done recently as outpatient Needs close follow-up with urology. Type 2 diabetes insulin sliding scale Pharmacy consult Current HbA1c 7.0% follow blood sugars. Sleep apnea CPAP nightly as tolerated Hypertension We will hold losartan for now IV hydralazine as needed DVT prophylaxis Lovenox Disposition Monitor in med telemetry CODE STATUS full code (2) Acute UTI: (3) Small bowel obstruction: Admission and Anticipated Discharge Date Admission Date: October 11, 2022 Subjective Pt seen in follow up of sbo, pl. effusion Currently laying in bed in ICU s/p abd. surgery yesterday S/p thoracentesis yesterday Says overall feeling improved Has some abdominal pain at surg. site but pain overall seems improved. No chest pain. No shortness of breath. No fever, or chills. Reports that his has dementia and needs caregivers, currently his children helping taking care of her. Review of Systems Review of Systems: All systems reviewed & are unremarkable except as noted in Subjective Physical Exam Physical Exam: General- obese elderly M in NAD Head- atraumatic Eyes- PERRL ENT- oropharynx clear Neck- supple, no JVD, Lungs- + basilar crackles Heart- regular rhythm; no murmur Abdomen- +distended, obese, surg. dressings applied, diffuse mild tenderness Extremities- no pretibial edema, no erythema. Neuro- alert, oriented x 3; PERRL,no facial palsy; no dysarthria, moves extremities Skin- warm & dry Results & Data Results & Data Vital Signs (Past 12 Hours) Vital Signs Pulse Resp BP Pulse Ox O2 Del Method O2 Flow Rate 10/12/22 13:00 77 24 97 10/12/22 13:00 163/85 H 10/12/22 12:39 169/91 H 10/12/22 12:39 78 24 97 10/12/22 12:00 81 25 H 97 10/12/22 12:00 163/84 H 10/12/22 11:00 80 27 H 94 10/12/22 11:00 167/86 H 10/12/22 10:00 81 26 H 95 10/12/22 10:00 150/84 H 10/12/22 09:00 80 10 L 96 10/12/22 09:00 146/70 H 10/12/22 08:00 84 25 H 95 10/12/22 08:00 136/74 10/12/22 07:01 146/64 H 10/12/22 07:01 87 23 94 10/12/22 07:00 86 30 H 94 10/12/22 08:00 Nasal Cannula 2 10/12/22 08:00 Nasal Cannula 10/12/22 08:00 87 10/12/22 06:00 85 17 96 Nasal Cannula 2 10/12/22 06:00 143/75 H 10/12/22 05:30 87 25 H 94 10/12/22 05:00 80 26 H 94 10/12/22 05:00 135/73 10/12/22 04:30 82 26 H 96 10/12/22 04:00 80 12 95 10/12/22 04:00 129/70 10/12/22 03:30 80 19 95 Laboratory Results 10/12/22 10/12/22 10/12/22 Range/Units 14:14 12:36 05:36 WBC (4.8-10.8) K/ul RBC (4.70-6.10) M/uL Hgb (14.0-18.0) g/dl Hct (42.0-52.0) % MCV (80.0-100.0) fL MCH (25.0-34.0) pg MCHC (32.0-36.0) g/dL RDW Std Deviation (36.4-46.3) fL RDW Coeff of Dora (11.5-14.5) % Plt Count (130-400) K/uL MPV (9.4-12.4) fL Sodium (136-145) mmol/L Potassium (3.5-5.1) mmol/L Chloride (98-107) mmol/L Carbon Dioxide (21-32) mmol/L Anion Gap (3-11) BUN (6-23) mg/dl Creatinine (0.6-1.4) mg/dl Est Cr Clr Drug Dosing ml/min Est GFR ( Amer) ml/min Est GFR (Non-Af Amer) ml/min BUN/Creatinine Ratio (10-20) Glucose (70-99(Fasting)) mg/dl POC Glucose 187 H 209 H (70-99) mg/dl Estimat Average Glucose mg/dl Hemoglobin A1c (4.5-5.6) % Calcium (8.6-10.3) mg/dl Phosphorus (2.5-4.9) mg/dl Magnesium (1.7-2.4) mg/dl Total Bilirubin (0.2-1.0) mg/dl AST (13-39) U/L ALT (7-52) U/L Alkaline Phosphatase (34-104) U/L Total Protein (6.0-8.3) gm/dl Albumin (3.4-5.0) gm/dl Globulin (2.5-4.0) gm/dl Albumin/Globulin Ratio (0.9-2) Fluid Neutrophils % % Fluid Lymphocytes % % Fluid Meso/Macro/Swisher % % Pleural Fluid Source Pleural Color Pleural Appearance Pleural WBC (Auto) /uL Pleural RBC (Auto) /uL Ref Lab Test Result Pending 10/12/22 10/12/22 10/11/22 Range/Units 04:44 04:44 23:45 WBC 9.79 (4.8-10.8) K/ul RBC 4.56 L (4.70-6.10) M/uL Hgb 12.9 L (14.0-18.0) g/dl Hct 39.5 L (42.0-52.0) % MCV 86.6 (80.0-100.0) fL MCH 28.3 (25.0-34.0) pg MCHC 32.7 (32.0-36.0) g/dL RDW Std Deviation 46.2 (36.4-46.3) fL RDW Coeff of Dora 14.5 (11.5-14.5) % Plt Count 143 (130-400) K/uL MPV 10.7 (9.4-12.4) fL Sodium 145 (136-145) mmol/L Potassium 3.2 L (3.5-5.1) mmol/L Chloride 108 H (98-107) mmol/L Carbon Dioxide 29 (21-32) mmol/L Anion Gap 8 (3-11) BUN 51 H (6-23) mg/dl Creatinine 1.55 H D (0.6-1.4) mg/dl Est Cr Clr Drug Dosing 49.0 ml/min Est GFR ( Amer) 47.9 ml/min Est GFR (Non-Af Amer) 41.4 ml/min BUN/Creatinine Ratio 32.9 H (10-20) Glucose 212 H (70-99(Fasting)) mg/dl POC Glucose 178 H (70-99) mg/dl Estimat Average Glucose mg/dl Hemoglobin A1c (4.5-5.6) % Calcium 8.2 L (8.6-10.3) mg/dl Phosphorus 3.2 (2.5-4.9) mg/dl Magnesium 1.8 (1.7-2.4) mg/dl Total Bilirubin 1.5 H (0.2-1.0) mg/dl AST 12 L (13-39) U/L ALT 9 (7-52) U/L Alkaline Phosphatase 49 (34-104) U/L Total Protein 6.0 (6.0-8.3) gm/dl Albumin 3.3 L (3.4-5.0) gm/dl Globulin 2.7 (2.5-4.0) gm/dl Albumin/Globulin Ratio 1.2 (0.9-2) Fluid Neutrophils % % Fluid Lymphocytes % % Fluid Meso/Macro/Swisher % % Pleural Fluid Source Pleural Color Pleural Appearance Pleural WBC (Auto) /uL Pleural RBC (Auto) /uL Ref Lab Test Result 10/11/22 10/11/22 10/11/22 Range/Units 17:55 13:45 05:22 WBC (4.8-10.8) K/ul RBC (4.70-6.10) M/uL Hgb (14.0-18.0) g/dl Hct (42.0-52.0) % MCV (80.0-100.0) fL MCH (25.0-34.0) pg MCHC (32.0-36.0) g/dL RDW Std Deviation (36.4-46.3) fL RDW Coeff of Dora (11.5-14.5) % Plt Count (130-400) K/uL MPV (9.4-12.4) fL Sodium (136-145) mmol/L Potassium (3.5-5.1) mmol/L Chloride (98-107) mmol/L Carbon Dioxide (21-32) mmol/L Anion Gap (3-11) BUN (6-23) mg/dl Creatinine (0.6-1.4) mg/dl Est Cr Clr Drug Dosing ml/min Est GFR ( Amer) ml/min Est GFR (Non-Af Amer) ml/min BUN/Creatinine Ratio (10-20) Glucose (70-99(Fasting)) mg/dl POC Glucose 186 H (70-99) mg/dl Estimat Average Glucose 154 mg/dl Hemoglobin A1c 7.0 H (4.5-5.6) % Calcium (8.6-10.3) mg/dl Phosphorus (2.5-4.9) mg/dl Magnesium (1.7-2.4) mg/dl Total Bilirubin (0.2-1.0) mg/dl AST (13-39) U/L ALT (7-52) U/L Alkaline Phosphatase (34-104) U/L Total Protein (6.0-8.3) gm/dl Albumin (3.4-5.0) gm/dl Globulin (2.5-4.0) gm/dl Albumin/Globulin Ratio (0.9-2) Fluid Neutrophils % 3 % Fluid Lymphocytes % 87 % Fluid Meso/Macro/Swisher % 10 % Pleural Fluid Source Right Lung Pleural Color Other Pleural Appearance Turbid Pleural WBC (Auto) 4101 /uL Pleural RBC (Auto) 74424 /uL Ref Lab Test Result Medications Administered Current Inpatient Medications Dextrose (Dextrose 50% 50 Ml Syringe) 25 - 50 ml IV UD PRN; Protocol PRN Reason: Hypoglycemia Protocol Stop: 11/10/22 02:48 Enoxaparin Sodium (Enoxaparin Inj 40 Mg/0.4 Ml Syr) 40 mg SQ Q24H GAMALIEL Stop: 11/10/22 08:59 Last Admin: 10/12/22 08:10 Dose: 40 mg Glucagon (Glucagon For Inj 1 Mg Vial) 1 mg SQ UD PRN; Protocol PRN Reason: Hypoglycemia Protocol Stop: 11/10/22 02:48 Glucose (Glucose 10 Tab/Tube) 4 - 8 tab PO UD PRN; Protocol PRN Reason: Hypoglycemia Treatment Stop: 11/10/22 02:48 Glucose (Glucose 40% Gel 15 Gm Tube) 15 - 30 gm PO UD PRN; Protocol PRN Reason: Hypoglycemia Protocol Stop: 11/10/22 02:48 Hydralazine HCl (Hydralazine Hcl 20 Mg/Ml Vial) 5 mg IV Q6H PRN PRN Reason: Hypertension Stop: 11/10/22 02:48 Last Admin: 10/11/22 12:42 Dose: 5 mg Hydromorphone HCl (Hydromorphone Inj 0.5 Mg/0.5 Ml Syr) 0.5 mg IV Q4H PRN PRN Reason: Pain Stop: 10/25/22 02:48 Last Admin: 10/12/22 14:53 Dose: 0.5 mg Sodium Chloride (Nss 1000ml) 1,000 mls @ 50 mls/hr IV .Q20H GAMALIEL Stop: 11/10/22 02:48 Last Infusion: 10/12/22 11:20 Dose: 50 mls/hr Piperacillin Sod/Tazobactam (Sod 4.5 gm/ Dextrose) 120 mls @ 30 mls/hr IV Q8H GAMALIEL; Protocol Stop: 10/18/22 05:59 Last Admin: 10/12/22 14:53 Dose: 30 mls/hr Doxycycline Hyclate 100 mg/ (Dextrose) 110 mls @ 50 mls/hr IV Q12H GAMALIEL Stop: 10/18/22 03:59 Last Infusion: 10/12/22 08:17 Dose: Infused Insulin Aspart (Insulin Aspart Per Unit Charge) 0 units SC Q6 GAMALIEL; Protocol Stop: 11/10/22 05:59 Last Admin: 10/12/22 12:53 Dose: 3 units Miscellaneous (Carbohydrates For Hypoglycemia ) 15 - 30 gm PO UD PRN PRN Reason: Hypoglycemia Protocol Stop: 11/10/22 02:48 Miscellaneous (Icu Protocol For Hyperglycemia) 1 each N/A ACHS [facility] Stop: 10/13/22 11:43 Last Admin: 10/12/22 13:37 Dose: Not Given Miscellaneous Information (Pharmacy Glycemic Mgmt Consult) 1 each N/A UD PRN PRN Reason: Consult Stop: 11/10/22 02:48 Nitroglycerin (Nitroglycerin Sl 0.4 Mg/Tab Tab) 0.4 mg SL Q5M PRN PRN Reason: Chest Pain Stop: 11/10/22 02:48 Ondansetron HCl (Ondansetron Inj 2 Mg/Ml 2 Ml Vial) 4 mg IV Q6H PRN PRN Reason: Nausea Stop: 11/10/22 02:48 (1) Pneumonia Laterality: right Lung location: lower lobe of lung Pneumonia type: due to unspecified organism Qualified Code(s): J18.9 - Pneumonia, unspecified organism
--- NOTE | 2022-10-12 16:28 | CT Scan Report ---
CT chest diagnostic wo con CLINICAL HISTORY: chylous effusion TECHNIQUE: Multidetector row helical CT of the chest was performed. Coronal and sagittal reformations were obtained. Automated dose lowering techniques and/or adjustment according to patient size were u tilized for this exam. CT DOSE: 706.57 mGy.cm Comparison: Comparison is made to CT chest 10/11/2022 FINDINGS: Lungs and pleura: Bilateral pleural effusions are seen, right greater than left, with underlying atel ectasis. Heart and pericardium: Aortic valvular calcifications are seen. Vessels: Severe atherosclerotic changes in the aorta and coronary arteries. Pulmonary trunk measures 41 mm in diameter. Mediastinum and marianna: Subcentimeter lymph nodes are seen. Chest wall and lower neck: Small thyroid nodules are noted which do not require follow-up by ACR kiko desir. Abdomen: Unremarkable. And enteric tube extends into the stomach, the tip is not visualized. Bones: Degenerative changes in the thoracic spine. Partial visualization of ACDF. IMPRESSION: 1. Redemonstration of small right and trace left pleural effusions. The right effusion may be minima lly decreased from prior exam. Underlying atelectasis is seen. 2. Partially calcified mediastinal lymph nodes compatible with prior granulomatous disease. 3. Pulmonary hypertension. ACT 112: Negative or not required by law. Electronically signed by: Israel Harper M.D. 10/12/2022 4:27 PM
[2022-10-13] MEDS: DOXYCYCLINE HYCLATE 100 MG in DEXTROSE 5% 100 ML IV SCH ×2 (04:58→16:35)
[2022-10-13] MEDS: HYDROmorphone INJ 0.5 MG/0.5 ML SYR IV PRN ×3 (05:50→18:25)
[2022-10-13] MEDS: INSULIN ASPART PER UNIT CHARGE SC SCH ×3 (05:51→18:24)
--- NOTE | 2022-10-13 06:14 | Surgery Progress Note ---
Date of Service October 13, 2022 Assessment & Plan (1) H/O exploratory laparotomy: Plan: Patient with bowel obstruction secondary to internal hernia His NG output has diminished-we will try clamping and hopefully we can remove it soon He does have some bowel sounds but is not passing any flatus-would not be unexpected to have a mild ileus His abdomen is distended but I think this is partially baseline Continue March for now Try to have patient ambulate Chest studies and progress Admission and Anticipated Discharge Date Admission Date: October 11, 2022 Results & Data Vital Signs (Past 12 Hours) Vital Signs Temp Pulse Pulse Pulse Resp BP Pulse Ox 10/13/22 03:47 36.9 C 75 18 164/82 H 91 10/12/22 23:08 37.1 C 77 18 158/76 H 90 10/12/22 22:55 75 10/12/22 20:00 10/12/22 19:10 36.4 C L 79 20 166/88 H 94 O2 Del Method 10/13/22 03:47 Room Air 10/12/22 23:08 Room Air 10/12/22 22:55 10/12/22 20:00 Room Air 10/12/22 19:10 Room Air PG Care Time/CCT Total # of Minutes Spent Total Time Spent with Patient: Total time spent is greater than 50% in coordination of care (as documented) at patient's floor/unit and/or counseling patient: Coding Level of Care Code 96757 Post Operative Follow-Up Diagnoses H/O exploratory laparotomy Z98.890
[2022-10-13 06:21] LABS: Hemoglobin 12.3 g/dl (14.0-18.0); Mean Corpuscular Hemoglobin 28.2 pg (25.0-34.0); Mean Corpuscular Hgb Conc 32.4 g/dL (32.0-36.0); Mean Corpuscular Volume 87.2 fL (80.0-100.0); Mean Platelet Volume 11.4 fL (9.4-12.4); Platelet Count 141 K/uL (130-400); RDW Coefficient of Variation 14.4 % (11.5-14.5); RDW Standard Deviation 46.1 fL (36.4-46.3); Red Blood Count 4.36 M/uL (4.70-6.10); White Blood Count 9.22 K/ul (4.8-10.8)
[2022-10-13] MEDS: PIPERACILLIN/TAZOBACTAM 4.5 GM in DEXTROSE 5% 100 ML IV SCH ×3 (06:34→22:42)
[2022-10-13 06:52] LABS: BUN Creatinine Ratio 39.8 (10-20); Calcium 8.4 mg/dl (8.6-10.3); Creatinine Clr Calc Pharmacy 76.9 ml/min; Est GFR (African American) 83.5 ml/min; Phosphorus 1.3 mg/dl (2.5-4.9); Potassium 3.2 mmol/L (3.5-5.1)
[2022-10-13] MEDS ORDERED: POTASSIUM PHOS 3 MMOL/1 ML INFUSION IV STA ×2 (06:53→09:58)
[2022-10-13] MEDS ORDERED: POTASSIUM PHOSPHATE 30 MMOL in SODIUM CHLORIDE 0.9% 500 ML IV ONE ×2 (07:00→10:15)
[2022-10-13] MEDS ORDERED: LANTUS PER UNIT CHARGE SC ONE (07:15)
[2022-10-13] MEDS: SODIUM CHLORIDE 0.9% 1000ML 1,000 ML IV SCH ×3 (07:25→12:19)
--- NOTE | 2022-10-13 07:53 | Pulmonology Progress Note ---
Date of Service October 13, 2022 Assessment & Plan (1) Pneumonia: Laterality: right Lung location: lower lobe of lung Pneumonia type: due to unspecified organism Qualified Code(s): J18.9 - Pneumonia, unspecified organism (2) GAVIOTA (obstructive sleep apnea): (3) Pleural effusion: Plan Impression: 82-year-old male admitted with small bowel obstruction status post laparotomy. Found incidentally to have an effusion which may have been present on thoracic spine imaging from November 2020. Fluid demonstrates an exudative lymphocytic predominant fluid with cytology and cultures pending. Recommendations: 1. Pleural effusion: Lymphocytic exudate. The appearance may have been suggestive of chylothorax. Pleural fluid cholesterol and triglycerides are currently pending. CT of the chest yesterday showed minimal reaccumulation of pleural fluid and no significant adenopathy although there was some mediastinal stranding. Cytology pending. Cultures negative to date. 2. Management the patient's other medical issues per primary admitting service. 3. Hypoxemia: Suspect secondary to splinting from upper abdominal surgery. Incentive spirometry and wean oxygen to maintain oxygen saturations greater than 90%. There were some secretions within the trachea. Incentive spirometry recommended. Patient was advised to use it 10 times per hour while awake We will continue to follow with you. Admission and Anticipated Discharge Date Admission Date: October 11, 2022 Subjective Patient seen and examined. EMR reviewed. Patient is awake alert and conversant. He does not appear in any acute distress. He denies any shortness of breath. No cough or chest pain. He is having some mild abdominal discomfort. Review of Systems Review of Systems: All systems reviewed & are unremarkable except as noted in Subjective Physical Exam Constitutional: WD/WN, vitals as above Neck: trachea midline, no thyromegaly Respiratory: normal respiratory effort, lungs clear to auscultation Cardiovascular: RRR, no murmur, no edema Gastrointestinal (Abdomen): normal bowel sounds, soft, nontender, no hepatosplenomegaly Musculoskeletal: Extremities: extremities normal to inspection Skin: no rashes, warm and dry Lymphatic: no cervical lymphadenopathy Results & Data Results & Data Vital Signs (Past 12 Hours) Vital Signs Temp Pulse Pulse Resp BP Pulse Ox Pulse Ox 10/13/22 06:07 70 10/13/22 07:13 93 10/13/22 07:08 36.7 C 78 18 166/75 H 10/13/22 03:47 36.9 C 75 18 164/82 H 91 10/12/22 23:08 37.1 C 77 18 158/76 H 90 10/12/22 22:55 75 10/12/22 20:00 O2 Del Method O2 Del Method O2 Flow Rate 10/13/22 06:07 10/13/22 07:13 Nasal Cannula 2 10/13/22 07:08 10/13/22 03:47 Room Air 10/12/22 23:08 Room Air 10/12/22 22:55 10/12/22 20:00 Room Air Laboratory Results 10/13/22 05:41 10/13/22 05:[address] chest diagnostic wo con 10/12/2022: Independently reviewed CLINICAL HISTORY: chylous effusion TECHNIQUE: Multidetector row helical CT of the chest was performed. Coronal and sagittal reformations were obtained. Automated dose lowering techniques and/or adjustment according to patient size were utilized for this exam. CT DOSE: 706.57 mGy.cm Comparison: Comparison is made to CT chest 10/11/2022 FINDINGS: Lungs and pleura: Bilateral pleural effusions are seen, right greater than left, with underlying atelectasis. Heart and pericardium: Aortic valvular calcifications are seen. Vessels: Severe atherosclerotic changes in the aorta and coronary arteries. Pulmonary trunk measures 41 mm in diameter. Mediastinum and marianna: Subcentimeter lymph nodes are seen. Chest wall and lower neck: Small thyroid nodules are noted which do not require follow-up by ACR criteria. Abdomen: Unremarkable. And enteric tube extends into the stomach, the tip is not visualized. Bones: Degenerative changes in the thoracic spine. Partial visualization of ACDF. IMPRESSION: 1. Redemonstration of small right and trace left pleural effusions. The right effusion may be minimally decreased from prior exam. Underlying atelectasis is seen. 2. Partially calcified mediastinal lymph nodes compatible with prior granulom atous disease. 3. Pulmonary hypertension. PG Care Time/CCT Total # of Minutes Spent Total Time Spent with Patient: Total time spent is greater than 50% in coordination of care (as documented) at patient's floor/unit and/or counseling patient: Coding Level of Care Code 71653 SUB INP/OBS CARE 2/35MIN Diagnoses Pneumonia J18.9 Laterality: right Lung location: lower lobe of lung Pneumonia type: due to unspecified organism GAVIOTA (obstructive sleep apnea) G47.33 Pleural effusion J90
[2022-10-13] MEDS: ENOXAPARIN INJ 40 MG/0.4 ML SYR SQ SCH (08:17)
[2022-10-13] MEDS: ICU Protocol for HYPERglycemia SCH ×2 (08:17→11:40)
--- NOTE | 2022-10-13 08:32 | Pharmacy Report ---
Pharmacy Glycemic Short Note 2 - Date of Service October 13, 2022 - Glycemic Short BSG Results (Last 24 hours): 10/12/22 10/12/22 10/12/22 12:36 18:17 23:12 Glucose POC Glucose 187 H 176 H 191 H 10/13/22 10/13/22 05:35 05:41 Glucose 185 H POC Glucose 171 H OUTPATIENT ANTIDIABETIC REGIMEN: * Novolin 70/30: 38 units SC AM, 48 units SC PM * HbA1c: 7.0% (10/11/22) ASSESSMENT: 10/13: * BSGs mildly elevated yesterday, ranging 176-209 mg/dL * Patient received 21 units of insulin (~50/50 basal/bolus) * POD #2 - patient remains NPO * Fasting BSG of 171 mg/dL this morning * Given mild BSG elevation yesterday and elevated fasting - will increase basal today 10/12: * Patient has received 4 units of insulin total so far, all bolus. BSGs yesterday were: [phone] mg/dL. * Fasting BSG was 209 mg/dL this AM. Given patient remains NPO on POD #1 s/p exploratory laparotomy, will give a conservative one time dose of basal insulin now. Reassess basal insulin in the AM. * BSGs continuously daniel throughout the day yesterday. Will tighten correctional insulin today. * Remains on IV Zosyn and Doxycycline. 10/11: * Mr Castillo is an 82yo diabetic M admitted with SBO. * He is ordered IV Zosyn and doxycycline and is currently NPO. * BSGs have been below goal thus far. Will use Novolog only for now and initiate some NPH once BSGs above/within goal. * Pharmacy will continue to follow and adjust regimen as indicated. PLAN FOR INPATIENT GLYCEMIC CONTROL: * Basal insulin * Lantus 15 units SC daily * Bolus insulin * NovoLog per scale ACHS or Q6hrs while NPO * Goal Range: Low 110 mg/dL - High 150 mg/dL * Correction Factor: 15 mg/dL/unit * Nutritional / Prandial insulin per carb ratio of 1 unit per 6 grams CHO consumed
--- NOTE | 2022-10-13 08:39 | Hospitalist Progress Note ---
Date of Service October 13, 2022 Assessment & Plan (1) Pneumonia: Plan: 82-year-old male with past medical history significant for type 2 diabetes hyperlipidemia, sleep apnea, hypertension, obesity, BPH presents with cough, shortness of breath, nausea and abdominal pain radiating to the chest. Small bowel obstruction Seen by surgery S/p NG tube IV fluids, IV antiemetics, IV pain meds as needed S/p ex lap (10/11/22) w/ Dr. San Patient has small bowel obstruction from an internal hernia within the mesentery causing severe dilation of the small bowel and hemorrhagic changes There is also some hemorrhagic change in the mesentery near this area The hernia defect was closed Small bowel was completely viable 10/13 continues to have NG tube placed, per surgery, likely to clamp/remove late r. ? Right-sided pleural effusion moderate Pneumonia CT chest obtained - 1. Loculated moderate sized right pleural effusion. 2. Dependent consolidation of the right lung suggestive of compressive atelectasis with near complete collapse of the right lower lobe. Underlying pneumonia would be difficult to exclude. 3. Prior granulomatous disease. 4. Cardiomegaly. 5. Trace upper abdominal ascites. ER started Zosyn which will be continued, doxycycline also added on admission IV fluids Follow the cultures Monitor med telemetry. Pulmonary medicine consulted and pt underwent thoracentesis on 10/11/22 w/Dr. Queen - 1300cc of milky fluid obtained. ? chylothorax FE - Cr up 1.5 - now improved -back to baseline - nephrology consulted - wlll stop IVF Right renal mass Complex cyst, possible neoplasm Was also seen on CAT scan done recently as outpatient Needs close follow-up with urology. Type 2 diabetes insulin sliding scale Pharmacy consult Current HbA1c 7.0% follow blood sugars. Sleep apnea CPAP nightly as tolerated Hypertension We will hold losartan for now IV hydralazine as needed DVT prophylaxis - Lovenox Disposition - Monitor in med telemetry CODE STATUS - full code (2) Acute UTI: (3) Small bowel obstruction: Admission and Anticipated Discharge Date Admission Date: October 11, 2022 Subjective Pt seen in follow up of sbo, pl. effusion Currently laying in bed in ICU s/p abd. surgery and S/p thoracentesis Says overall feeling improved Has some abdominal pain at surg. site but pain overall seems improved. No chest pain. No shortness of breath. No fever, or chills. Reports that his has dementia and needs caregivers, currently his children helping taking care of her. Review of Systems Review of Systems: All systems reviewed & are unremarkable except as noted in Subjective Physical Exam Physical Exam: General- obese elderly M in NAD Head- atraumatic Eyes- PERRL ENT- oropharynx clear Neck- supple, no JVD, Lungs- + basilar crackles Heart- regular rhythm; no murmur Abdomen- +distended, obese, surg. dressings applied, diffuse mild tenderness Extremities- no pretibial edema, no erythema. Neuro- alert, oriented x 3; PERRL,no facial palsy; no dysarthria, moves extremities Skin- warm & dry Results & Data Results & Data Vital Signs (Past 12 Hours) Vital Signs Temp Pulse Pulse Resp BP Pulse Ox Pulse Ox 10/13/22 06:07 70 10/13/22 07:13 93 10/13/22 07:08 36.7 C 78 18 166/75 H 10/13/22 03:47 36.9 C 75 18 164/82 H 91 10/12/22 23:08 37.1 C 77 18 158/76 H 90 10/12/22 22:55 75 O2 Del Method O2 Del Method O2 Flow Rate 10/13/22 06:07 10/13/22 07:13 Nasal Cannula 2 10/13/22 07:08 10/13/22 03:47 Room Air 10/12/22 23:08 Room Air 10/12/22 22:55 Laboratory Results 10/13/22 10/13/22 10/13/22 Range/Units 05:41 05:41 05:35 WBC 9.22 (4.8-10.8) K/ul RBC 4.36 L (4.70-6.10) M/uL Hgb 12.3 L (14.0-18.0) g/dl Hct 38.0 L (42.0-52.0) % MCV 87.2 (80.0-100.0) fL MCH 28.2 (25.0-34.0) pg MCHC 32.4 (32.0-36.0) g/dL RDW Std Deviation 46.1 (36.4-46.3) fL RDW Coeff of Dora 14.4 (11.5-14.5) % Plt Count 141 (130-400) K/uL MPV 11.4 (9.4-12.4) fL Sodium 144 (136-145) mmol/L Potassium 3.2 L (3.5-5.1) mmol/L Chloride 109 H (98-107) mmol/L Carbon Dioxide 29 (21-32) mmol/L Anion Gap 6 (3-11) BUN 39 H (6-23) mg/dl Creatinine 0.98 D (0.6-1.4) mg/dl Est Cr Clr Drug Dosing 76.9 ml/min Est GFR ( Amer) 83.5 ml/min Est GFR (Non-Af Amer) 72.0 ml/min BUN/Creatinine Ratio 39.8 H (10-20) Glucose 185 H (70-99(Fasting)) mg/dl POC Glucose 171 H (70-99) mg/dl Calcium 8.4 L (8.6-10.3) mg/dl Phosphorus 1.3 L* D (2.5-4.9) mg/dl Magnesium 2.0 (1.7-2.4) mg/dl 10/12/22 10/12/22 10/12/22 Range/Units 23:12 18:17 12:36 WBC (4.8-10.8) K/ul RBC (4.70-6.10) M/uL Hgb (14.0-18.0) g/dl Hct (42.0-52.0) % MCV (80.0-100.0) fL MCH (25.0-34.0) pg MCHC (32.0-36.0) g/dL RDW Std Deviation (36.4-46.3) fL RDW Coeff of Dora (11.5-14.5) % Plt Count (130-400) K/uL MPV (9.4-12.4) fL Sodium (136-145) mmol/L Potassium (3.5-5.1) mmol/L Chloride (98-107) mmol/L Carbon Dioxide (21-32) mmol/L Anion Gap (3-11) BUN (6-23) mg/dl Creatinine (0.6-1.4) mg/dl Est Cr Clr Drug Dosing ml/min Est GFR ( Amer) ml/min Est GFR (Non-Af Amer) ml/min BUN/Creatinine Ratio (10-20) Glucose (70-99(Fasting)) mg/dl POC Glucose 191 H 176 H 187 H (70-99) mg/dl Calcium (8.6-10.3) mg/dl Phosphorus (2.5-4.9) mg/dl Magnesium (1.7-2.4) mg/dl Medications Administered Current Inpatient Medications Dextrose (Dextrose 50% 50 Ml Syringe) 25 - 50 ml IV UD PRN; Protocol PRN Reason: Hypoglycemia Protocol Stop: 11/10/22 02:48 Enoxaparin Sodium (Enoxaparin Inj 40 Mg/0.4 Ml Syr) 40 mg SQ Q24H GAMALIEL Stop: 11/10/22 08:59 Last Admin: 10/13/22 08:17 Dose: 40 mg Glucagon (Glucagon For Inj 1 Mg Vial) 1 mg SQ UD PRN; Protocol PRN Reason: Hypoglycemia Protocol Stop: 11/10/22 02:48 Glucose (Glucose 10 Tab/Tube) 4 - 8 tab PO UD PRN; Protocol PRN Reason: Hypoglycemia Treatment Stop: 11/10/22 02:48 Glucose (Glucose 40% Gel 15 Gm Tube) 15 - 30 gm PO UD PRN; Protocol PRN Reason: Hypoglycemia Protocol Stop: 11/10/22 02:48 Hydralazine HCl (Hydralazine Hcl 20 Mg/Ml Vial) 5 mg IV Q6H PRN PRN Reason: Hypertension Stop: 11/10/22 02:48 Last Admin: 10/11/22 12:42 Dose: 5 mg Hydromorphone HCl (Hydromorphone Inj 0.5 Mg/0.5 Ml Syr) 0.5 mg IV Q4H PRN PRN Reason: Pain Stop: 10/25/22 02:48 Last Admin: 10/13/22 05:50 Dose: 0.5 mg Sodium Chloride (Nss 1000ml) 1,000 mls @ 50 mls/hr IV .Q20H GAMALIEL Stop: 11/10/22 02:48 Last Admin: 10/13/22 07:36 Dose: Not Given Piperacillin Sod/Tazobactam (Sod 4.5 gm/ Dextrose) 120 mls @ 30 mls/hr IV Q8H GAMALIEL; Protocol Stop: 10/18/22 05:59 Last Admin: 10/13/22 06:34 Dose: 30 mls/hr Doxycycline Hyclate 100 mg/ (Dextrose) 110 mls @ 50 mls/hr IV Q12H GAMALIEL Stop: 10/18/22 03:59 Last Infusion: 10/13/22 07:25 Dose: Infused Potassium Phosphate 30 mmol/ (Sodium Chloride) 510 mls @ 88 mls/hr IV ONE ONE Stop: 10/13/22 12:47 Last Admin: 10/13/22 08:16 Dose: 88 mls/hr Insulin Aspart (Insulin Aspart Per Unit Charge) 0 units SC Q6 GAMALIEL; Protocol Stop: 11/10/22 05:59 Last Admin: 10/13/22 05:51 Dose: 2 units Miscellaneous (Carbohydrates For Hypoglycemia ) 15 - 30 gm PO UD PRN PRN Reason: Hypoglycemia Protocol Stop: 11/10/22 02:48 Miscellaneous (Icu Protocol For Hyperglycemia) 1 each N/A ACHS GAMALIEL Stop: 10/13/22 11:43 Last Admin: 10/13/22 08:17 Dose: Not Given Miscellaneous Information (Pharmacy Glycemic Mgmt Consult) 1 each N/A UD PRN PRN Reason: Consult Stop: 11/10/22 02:48 Nitroglycerin (Nitroglycerin Sl 0.4 Mg/Tab Tab) 0.4 mg SL Q5M PRN PRN Reason: Chest Pain Stop: 11/10/22 02:48 Ondansetron HCl (Ondansetron Inj 2 Mg/Ml 2 Ml Vial) 4 mg IV Q6H PRN PRN Reason: Nausea Stop: 11/10/22 02:48 (1) Pneumonia Laterality: right Lung location: lower lobe of lung Pneumonia type: due to unspecified organism Qualified Code(s): J18.9 - Pneumonia, unspecified organism
--- NOTE | 2022-10-13 10:48 | Nephrology Progress Note ---
Date of Service October 13, 2022 Assessment & Plan Admission and Anticipated Discharge Date Admission Date: October 11, 2022 Subjective Assessment and plan #1 acute renal failure ----slight rise in creatinine from normal to about 1.5 after presenting with bowel obstruction and receiving IV contrast . Her creatinine is now back to normal . Making lots of urine . stop IV fluids at this time as he seems somewhat volume overloaded and blood pressure is running high. subjective -----patient was seen at the bedside. Still has NG tube and still strict n.p.o.. Making urine and hemodynamically stable. He has been moved to telemetry floor from ICU Physical Exam: Awake and alert. NG tube . No distress Constitutional: No distress. No pain Neck: neck Supple. no JVD Respiratory: b/l clear. Cardiovascular: RRR. No murmur Gastrointestinal (Abdomen): Diffuse tender. Skin: No rash Neurologic: Alert. Normal Speech. Able to give detailed History Genitourinary: March. Results & Data Vital Signs (Past 12 Hours) Vital Signs Temp Pulse Pulse Resp BP Pulse Ox Pulse Ox 10/13/22 08:20 10/13/22 06:07 70 10/13/22 07:13 93 10/13/22 07:08 36.7 C 78 18 166/75 H 10/13/22 03:47 36.9 C 75 18 164/82 H 91 10/12/22 23:08 37.1 C 77 18 158/76 H 90 10/12/22 22:55 75 O2 Del Method O2 Del Method O2 Flow Rate O2 Flow Rate 10/13/22 08:20 Nasal Cannula 2 10/13/22 06:07 10/13/22 07:13 Nasal Cannula 2 10/13/22 07:08 10/13/22 03:47 Room Air 10/12/22 23:08 Room Air 10/12/22 22:55
[2022-10-13] MEDS: hydrALAZINE HCL 20 MG/ML VIAL IV PRN (18:45)
[2022-10-14] MEDS: INSULIN ASPART PER UNIT CHARGE SC SCH ×4 (00:08→18:19)
[2022-10-14] MEDS: hydrALAZINE HCL 20 MG/ML VIAL IV PRN ×3 (02:34→16:18)
[2022-10-14] MEDS: DOXYCYCLINE HYCLATE 100 MG in DEXTROSE 5% 100 ML IV SCH ×2 (03:00→16:18)
[2022-10-14] MEDS: PIPERACILLIN/TAZOBACTAM 4.5 GM in DEXTROSE 5% 100 ML IV SCH ×3 (05:01→20:59)
[2022-10-14] MEDS: HYDROmorphone INJ 0.5 MG/0.5 ML SYR IV PRN (06:21)
[2022-10-14 06:52] LABS: Hematocrit (blood only) 37.8 % (42.0-52.0); Hemoglobin 12.2 g/dl (14.0-18.0); Mean Corpuscular Hemoglobin 28.1 pg (25.0-34.0); Mean Corpuscular Hgb Conc 32.3 g/dL (32.0-36.0); Mean Corpuscular Volume 87.1 fL (80.0-100.0); Mean Platelet Volume 11.2 fL (9.4-12.4); Platelet Count 141 K/uL (130-400); RDW Standard Deviation 45.1 fL (36.4-46.3); Red Blood Count 4.34 M/uL (4.70-6.10); White Blood Count 7.92 K/ul (4.8-10.8)
[2022-10-14 07:11] LABS: BUN Creatinine Ratio 32.1 (10-20); Calcium 8.3 mg/dl (8.6-10.3); Creatinine Clr Calc Pharmacy 91.5 ml/min; Est GFR (African American) 95.2 ml/min; Est GFR (Non-African American) 82.1 ml/min; Phosphorus 1.6 mg/dl (2.5-4.9); Potassium 3.1 mmol/L (3.5-5.1)
[2022-10-14] MEDS: LANTUS PER UNIT CHARGE SC SCH (08:27)
[2022-10-14] MEDS: ENOXAPARIN INJ 40 MG/0.4 ML SYR SQ SCH (08:28)
[2022-10-14] MEDS ORDERED: hydrALAZINE HCL 20 MG/ML VIAL IV PRN (08:42)
[2022-10-14] MEDS ORDERED: POTASSIUM CHLORIDE 20 MEQ/15 ML UDC NG STA (08:42)
--- NOTE | 2022-10-14 08:44 | Surgery Progress Note ---
Date of Service October 14, 2022 Assessment & Plan (1) H/O exploratory laparotomy: Plan: NG output overnight moderate bilious No flatus, bowel sounds diminished Moderate distention-patient likely has an ileus which is not unexpected He did continue NG tube and can continue clamping PPN would help to improve his protein status-some concern for volume overload Probably would benefit from a PICC line-discussed this with the medical team Patient would like to keep the March for now as he is relatively immobile Admission and Anticipated Discharge Date Admission Date: October 11, 2022 Results & Data Vital Signs (Past 12 Hours) Vital Signs Temp Pulse Pulse Resp BP BP Pulse Ox 10/14/22 07:55 76 10/14/22 07:31 37.0 C 69 19 195/97 H 90 10/14/22 02:55 36.9 C 71 18 174/86 H 91 10/14/22 02:15 179/87 H 10/13/22 22:53 65 10/13/22 22:51 36.9 C 67 18 176/80 H 91 O2 Del Method 10/14/22 07:55 10/14/22 07:31 Room Air 10/14/22 02:55 Room Air 10/14/22 02:15 10/13/22 22:53 10/13/22 22:51 Room Air PG Care Time/CCT Total # of Minutes Spent Total Time Spent with Patient: Total time spent is greater than 50% in coordination of care (as documented) at patient's floor/unit and/or counseling patient: Coding Level of Care Code 46014 Post Operative Follow-Up Diagnoses H/O exploratory laparotomy Z98.890
[2022-10-14] MEDS ORDERED: POTASSIUM PHOS 3 MMOL/1 ML INFUSION IV STA (09:31)
[2022-10-14] MEDS ORDERED: POTASSIUM PHOSPHATE 30 MMOL in SODIUM CHLORIDE 0.9% 500 ML IV ONE (09:45)
[2022-10-14] MEDS: LOSARTAN POTASSIUM 50 MG TAB NG SCH (10:23)
[2022-10-14] MEDS: ACETAMINOPHEN 1,000 MG/100 ML VIAL IV SCH ×2 (10:24→17:52)
--- NOTE | 2022-10-14 10:24 | XRay Report ---
KUB HISTORY: ff up abdominal pain post surgery COMPARISON: KUB 10/11/2022. FINDINGS: A nasogastric tube remains within the stomach. Midline skin birdie are noted. Borderline d ilated gas-filled loops of small bowel have improved and measure up to 3.3 cm within the left upper q uadrant. There is a mildly distended gas and stool-filled colon measuring up to 10 cm. This favors a postoperative ileus. No renal calculi. No ureteral calculi. No pneumoperitoneum or pneumatosis. IMPRESSION: 1. Borderline dilated gas-filled loops of small bowel have improved. 2. Mildly distended gas and stool-filled colon. This favors a postoperative ileus. 3. Nasogastric tube terminates in the stomach. ACT 112: Negative or not required by law. Electronically signed by: Leo Butt M.D. 10/14/2022 10:23 AM
--- NOTE | 2022-10-14 15:00 | Pulmonology Progress Note ---
Date of Service October 14, 2022 Assessment & Plan (1) Pneumonia: Laterality: right Lung location: lower lobe of lung Pneumonia type: due to unspecified organism Qualified Code(s): J18.9 - Pneumonia, unspecified organism (2) GAVIOTA (obstructive sleep apnea): (3) Pleural effusion: Plan Impression: 82-year-old male admitted with small bowel obstruction status post laparotomy. Found incidentally to have an effusion which may have been present on thoracic spine imaging from November 2020. Fluid demonstrates an exudative lymphocytic predominant fluid with cytology and cultures pending. Recommendations: 1. Pleural effusion: Lymphocytic exudate. Cytology negative. Awaiting pleural fluid cholesterol and triglycerides. Repeat chest x-ray in a.m. to ensure its not reaccumulating although that if this is a chylous effusion, the patient's n .p.o. status may prevent it from reaccumulating. 2. Management the patient's other medical issues per primary admitting service. 3. Hypoxemia: Suspect secondary to splinting from upper abdominal surgery. Incentive spirometry and wean oxygen to maintain oxygen saturations greater than 90%. Recheck in a.m. with repeat chest x-ray Admission and Anticipated Discharge Date Admission Date: October 11, 2022 Subjective Patient seen and examined. EMR reviewed. He is sitting up in a chair. He is not having any respiratory issues. He is not coughing or expectorating any phlegm. No significant shortness of breath. He denies any pain in his chest. Review of Systems Review of Systems: All systems reviewed & are unremarkable except as noted in Subjective Physical Exam Constitutional: WD/WN, vitals as above Neck: trachea midline, no thyromegaly Respiratory: normal respiratory effort, lungs clear to auscultation Cardiovascular: RRR, no murmur, no edema Gastrointestinal (Abdomen): normal bowel sounds, soft, nontender, no hepatosplenomegaly Musculoskeletal: Extremities: extremities normal to inspection Skin: no rashes, warm and dry Lymphatic: no cervical lymphadenopathy Results & Data Results & Data Vital Signs (Past 12 Hours) Vital Signs Temp Pulse Pulse Resp BP BP Pulse Ox 10/14/22 11:01 36.4 C L 79 19 170/84 H 92 10/14/22 10:45 10/14/22 10:25 36.9 C 83 18 181/91 H 91 10/14/22 07:55 76 10/14/22 07:31 37.0 C 69 19 195/97 H 90 O2 Del Method 10/14/22 11:01 Room Air 10/14/22 10:45 Room Air 10/14/22 10:25 Room Air 10/14/22 07:55 10/14/22 07:31 Room Air Laboratory Results 10/14/22 05:57 10/14/22 05:57 Pleural fluid cytology is negative Pleural cholesterol and triglycerides still pending Diagnostic Findings No new chest imaging PG Care Time/CCT Total # of Minutes Spent Total Time Spent with Patient: Total time spent is greater than 50% in coordination of care (as documented) at patient's floor/unit and/or counseling patient: Coding Level of Care Code 45966 SUB INP/OBS CARE 2/35MIN Diagnoses Pneumonia J18.9 Laterality: right Lung location: lower lobe of lung Pneumonia type: due to unspecified organism GAVIOTA (obstructive sleep apnea) G47.33 Pleural effusion J90
[2022-10-14] MEDS ORDERED: amLODIPine BESYLATE 5 MG TAB NG ONE (15:28)
--- NOTE | 2022-10-14 16:17 | Hospitalist Progress Note ---
Date of Service October 14, 2022 Assessment & Plan (1) Pneumonia: Plan: per Dr. Romero's notes with addendum: 82-year-old male with past medical history significant for type 2 diabetes hyperlipidemia, sleep apnea, hypertension, obesity, BPH presents with cough, shortness of breath, nausea and abdominal pain radiating to the chest. Small bowel obstruction secondary to internal hernia 10/11/2022 status post closure of internal hernia, lysis of adhesions Patient has small bowel obstruction from an internal hernia within the mesentery causing severe dilation of the small bowel and hemorrhagic changes There is also some hemorrhagic change in the mesentery near this area The hernia defect was closed Small bowel was completely viable 10/14/2022 Having some abdominal discomfort today KUB: 1. Borderline dilated gas-filled loops of small bowel have improved. 2. Mildly distended gas and stool-filled colon. This favors a postoperative ileus. 3. Nasogastric tube terminates in the stomach. Continue NG tube, supportive care General surgery on board May need TPN/PPN Continue to monitor Right pleural effusion, chylothorax CT chest obtained - 1. Loculated moderate sized right pleural effusion. 2. Dependent consolidation of the right lung suggestive of compressive atelectasis with near complete collapse of the right lower lobe. Underlying pneumonia would be difficult to exclude. 3. Prior granulomatous disease. 4. Cardiomegaly. 5. Trace upper abdominal ascites. Pulmonary medicine consulted and pt underwent thoracentesis on 10/11/22 w/Dr. Queen - 1300cc of milky fluid obtained. ? chylothorax Follow-up cultures Continue Zosyn plus doxycycline IV day #4 Hypertension Uncontrolled Usual losartan 50 mg p.o. in the morning resumed Amlodipine 5 mg p.o. also ordered As needed hydralazine Monitor closely Hypokalemia P.o. 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 Type 2 diabetes insulin sliding scale Pharmacy consult Current HbA1c 7.0% follow blood sugars. Sleep apnea CPAP nightly as tolerated DVT prophylaxis - Lovenox Disposition Pending Will need PT and OT evaluate CODE STATUS - full code (2) Acute UTI: (3) Small bowel obstruction: Admission and Anticipated Discharge Date Admission Date: October 11, 2022 Subjective Follow-up for intestinal hernia, status post surgery, right-sided pleural effusion, status post thoracentesis etc. Seen sitting up in bed, comfortable, not in distress NG tube in place Patient states he has been having abdominal pain, central again Occasional nausea, but no vomiting No fevers or chills States breathing is much better, still has minimal yellow sputum No chest pain, shortness of breath, palpitations, dizziness No other symptoms Review of Systems Review of Systems: all noted and negative except for above Physical Exam Physical Exam: General- oriented x 3, not in distress, speaks in sentences with no effort or accessory muscle use Head- atraumatic Eyes- PERRL, EOMI, anicteric ENT- oropharynx clear Neck- supple, no JVD, no adenopathy, no thyromegaly; carotids +2/2, no bruits appreciated Lungs- clear to auscultation bilaterally, no rales/wheezes Heart- normal rate, regular rhythm; no murmur, no gallop, no rub appreciated Abdomen- normal bowel sounds, nondistended, soft, nontender, abdominal wound dressing in place-no bleeding or discharge Extremities- no pretibial edema, no calf tenderness; peripheral pulses intact Neuro- alert, oriented x 3; CN 2-12 grossly intact; motor 5/5 bilaterally;sensation 100% on all extremities; no other gross focal neurologic deficits Skin- warm & dry Results & Data Results & Data Vital Signs (Past 12 Hours) Vital Signs Temp Pulse Pulse Resp BP BP Pulse Ox 10/14/22 15:29 36.5 C 69 21 219/98 H 95 10/14/22 11:01 36.4 C L 79 19 170/84 H 92 10/14/22 10:45 10/14/22 10:25 36.9 C 83 18 181/91 H 91 10/14/22 07:55 76 10/14/22 07:31 37.0 C 69 19 195/97 H 90 O2 Del Method 10/14/22 15:29 Room Air 10/14/22 11:01 Room Air 10/14/22 10:45 Room Air 10/14/22 10:25 Room Air 10/14/22 07:55 10/14/22 07:31 Room Air all noted and reviewed including below (1) Pneumonia Laterality: right Lung location: lower lobe of lung Pneumonia type: due to unspecified organism Qualified Code(s): J18.9 - Pneumonia, unspecified organism
[2022-10-14] MEDS ORDERED: hydrALAZINE HCL 20 MG/ML VIAL IV ONE (18:11)
[2022-10-14] MEDS: POTASSIUM CHLORIDE 20 MEQ/15 ML UDC NG SCH (20:59)
[2022-10-15] MEDS: INSULIN ASPART PER UNIT CHARGE SC SCH ×6 (00:40→20:30)
[2022-10-15] MEDS: ACETAMINOPHEN 1,000 MG/100 ML VIAL IV SCH ×3 (02:09→17:50)
[2022-10-15] MEDS: hydrALAZINE HCL 20 MG/ML VIAL IV PRN ×2 (04:10→21:13)
[2022-10-15] MEDS: DOXYCYCLINE HYCLATE 100 MG in DEXTROSE 5% 100 ML IV SCH (06:22)
[2022-10-15] MEDS: PIPERACILLIN/TAZOBACTAM 4.5 GM in DEXTROSE 5% 100 ML IV SCH ×3 (06:23→21:13)
[2022-10-15] MEDS ORDERED: MINERAL OIL 30 ML UDC NG ONE (06:40)
--- NOTE | 2022-10-15 06:56 | Surgery Progress Note ---
Date of Service October 15, 2022 Assessment & Plan (1) H/O exploratory laparotomy: Plan: Minimal output from NG tube Patient passing significant flatus, abdomen much less distended More active bowel sounds NG tube removed Begin clear liquids, slowly advance diet DC March catheter Mobilization Dr. Mamadou Patel will be covering tomorrow through the weekend Admission and Anticipated Discharge Date Admission Date: October 11, 2022 Results & Data Vital Signs (Past 12 Hours) Vital Signs Temp Pulse Pulse Resp BP Pulse Ox O2 Del Method 10/15/22 03:24 36.6 C 70 20 184/89 H 90 Room Air 10/15/22 00:00 73 10/14/22 23:15 168/83 H 10/14/22 23:09 36.6 C 72 20 188/88 H 92 Room Air 10/14/22 22:35 Room Air 10/14/22 19:19 36.5 C 71 20 172/85 H 92 Room Air PG Care Time/CCT Total # of Minutes Spent Total Time Spent with Patient: Total time spent is greater than 50% in coordination of care (as documented) at patient's floor/unit and/or counseling patient: Coding Level of Care Code 58437 Post Operative Follow-Up Diagnoses H/O exploratory laparotomy Z98.890
[2022-10-15] MEDS ORDERED: Nursing to Pharmacy Communication SCH (07:30)
--- NOTE | 2022-10-15 07:40 | XRay Report ---
XR chest 1V portable HISTORY: 82 years-old Male effusion acute shortness of breath COMPARISON: 10/12/2022 TECHNIQUE: AP view of the chest FINDINGS: Cardiac silhouette is enlarged. Atherosclerosis of the thoracic arch. Unchanged small right pleural e ffusion with bibasilar consolidation. No pneumothorax or overt pulmonary edema. Degenerative changes of the shoulders and spine. Cervical spinal fusion hardware. IMPRESSION: 1. Unchanged small right pleural effusion with persistent bibasilar opacities. 2. Cardiomegaly. ACT 112: Negative or not required by law. The above report was generated using voice recognition software. It may contain grammatical, syntax o r spelling errors. Electronically signed by: Cheo Shi M.D. 10/15/2022 7:39 AM
--- NOTE | 2022-10-15 08:28 | Pulmonology Progress Note ---
Date of Service October 15, 2022 Assessment & Plan (1) Pneumonia: Laterality: right Lung location: lower lobe of lung Pneumonia type: due to unspecified organism Qualified Code(s): J18.9 - Pneumonia, unspecified organism (2) GAVIOTA (obstructive sleep apnea): (3) Pleural effusion: Plan Impression: 82-year-old male admitted with small bowel obstruction status post laparotomy. Found incidentally to have an effusion which may have been present on thoracic spine imaging from November 2020. Fluid demonstrates an exudative lymphocytic predominant fluid with negative cytology and culture. Recommendations: 1. Pleural effusion: Lymphocytic exudate. Cytology negative. Awaiting pleural fluid cholesterol and triglycerides. No evidence of significant reaccumulation. Would recommend following the patient clinically especially as he starts to eat to see whether or not the effusion reaccumulates. If he should have persistent respiratory complaints, would recommend repeating the chest x-ray. 2. Management the patient's other medical issues per primary admitting service. 3. Hypoxemia: Resolved Pulmonary will sign off at this point time. Feel free to contact us with questions or concerns Admission and Anticipated Discharge Date Admission Date: October 11, 2022 Subjective Patient seen and examined. EMR reviewed. His NG tube been discontinued and he is sitting up in bed eating. He is now off oxygen. He is not having any respiratory problems. He specifically denies any coughing or sputum production. He is not experiencing any chest pain. Feels like he is improving. Review of Systems Review of Systems: All systems reviewed & are unremarkable except as noted in Subjective Physical Exam Constitutional: WD/WN, vitals as above Neck: trachea midline, no thyromegaly Respiratory: normal respiratory effort, lungs clear to auscultation Cardiovascular: RRR, no murmur, no edema Gastrointestinal (Abdomen): normal bowel sounds, soft, nontender, no hepatosplenomegaly Musculoskeletal: Extremities: extremities normal to inspection Skin: no rashes, warm and dry Lymphatic: no cervical lymphadenopathy Results & Data Results & Data Vital Signs (Past 12 Hours) Vital Signs Temp Pulse Pulse Resp BP BP Pulse Ox 10/15/22 08:00 73 10/15/22 08:09 36.8 C 72 16 184/83 H 91 10/15/22 03:24 36.6 C 70 20 184/89 H 90 10/15/22 00:00 73 10/14/22 23:15 168/83 H 10/14/22 23:09 36.6 C 72 20 188/88 H 92 10/14/22 22:35 O2 Del Method 10/15/22 08:00 10/15/22 08:09 Room Air 10/15/22 03:24 Room Air 10/15/22 00:00 10/14/22 23:15 10/14/22 23:09 Room Air 10/14/22 22:35 Room Air Laboratory Results 10/14/22 05:57 10/14/22 05:57 Diagnostic Findings Chest x-ray today independently reviewed. Small degree of basilar opacity on the right. PG Care Time/CCT Total # of Minutes Spent Total Time Spent with Patient: Total time spent is greater than 50% in coordination of care (as documented) at patient's floor/unit and/or counseling patient: Coding Level of Care Code 41254 SUB INP/OBS CARE 2MIN Diagnoses Pneumonia J18.9 Laterality: right Lung location: lower lobe of lung Pneumonia type: due to unspecified organism GAVIOTA (obstructive sleep apnea) G47.33 Pleural effusion J90
[2022-10-15] MEDS: ENOXAPARIN INJ 40 MG/0.4 ML SYR SQ SCH (08:43)
[2022-10-15] MEDS: LOSARTAN POTASSIUM 50 MG TAB NG SCH (08:44)
[2022-10-15] MEDS: LANTUS PER UNIT CHARGE SC SCH (08:53)
[2022-10-15] MEDS: amLODIPine BESYLATE 5 MG TAB PO SCH (10:30)
[2022-10-15] MEDS: POTASSIUM CHLORIDE 20 MEQ/15 ML UDC NG SCH (10:39)
[2022-10-15 11:23] LABS: BUN Creatinine Ratio 24.3 (10-20); Calcium 8.2 mg/dl (8.6-10.3); Creatinine Clr Calc Pharmacy 103.3 ml/min; Est GFR (African American) 100.3 ml/min; Est GFR (Non-African American) 86.5 ml/min; Magnesium 1.9 mg/dl (1.7-2.4); Phosphorus 1.9 mg/dl (2.5-4.9); Potassium 3.3 mmol/L (3.5-5.1)
[2022-10-15] MEDS: SENNOSIDES 8.8 MG/5 ML UDC PO SCH ×2 (11:25→21:13)
[2022-10-15] MEDS: POTASSIUM CHLORIDE 20 MEQ/15 ML UDC PO SCH ×2 (11:28→21:12)
--- NOTE | 2022-10-15 12:50 | Pharmacy Report ---
Pharmacy Glycemic Short Note 2 - Date of Service October 15, 2022 - Glycemic Short BSG Results (Last 24 hours): 10/14/22 10/15/22 10/15/22 17:58 00:07 06:27 Glucose POC Glucose 186 H 112 H 153 H 10/15/22 10/15/22 10/15/22 07:28 10:26 11:39 Glucose 246 H POC Glucose 148 H 194 H OUTPATIENT ANTIDIABETIC REGIMEN: * Novolin 70/30: 38 units SC AM, 48 units SC PM * HbA1c: 7.0% (10/11/22) ASSESSMENT: 10/15: * BSGs had been stable over past 48 hours while NPO was requiring minimal insulin, Patient has started clear liquid diet this AM * Loosened carb ratio initially with diet this morning, tightened back to previous with lunch- slightly elevated at 194 mg/dL * Continue current lantus, fasting this morning 148 mg/dL- monitor trend 10/13: * BSGs mildly elevated yesterday, ranging 176-209 mg/dL * Patient received 21 units of insulin (~50/50 basal/bolus) * POD #2 - patient remains NPO * Fasting BSG of 171 mg/dL this morning * Given mild BSG elevation yesterday and elevated fasting - will increase basal today 10/12: * Patient has received 4 units of insulin total so far, all bolus. BSGs yesterday were: [phone] mg/dL. * Fasting BSG was 209 mg/dL this AM. Given patient remains NPO on POD #1 s/p exploratory laparotomy, will give a conservative one time dose of basal insulin now. Reassess basal insulin in the AM. * BSGs continuously daniel throughout the day yesterday. Will tighten correctional insulin today. * Remains on IV Zosyn and Doxycycline. 10/11: * Mr Castillo is an 82yo diabetic M admitted with SBO. * He is ordered IV Zosyn and doxycycline and is currently NPO. * BSGs have been below goal thus far. Will use Novolog only for now and initiate some NPH once BSGs above/within goal. * Pharmacy will continue to follow and adjust regimen as indicated. PLAN FOR INPATIENT GLYCEMIC CONTROL: * Basal insulin * Lantus 10 units SC daily * Bolus insulin * NovoLog per scale ACHS or Q6hrs while NPO * Goal Range: Low 110 mg/dL - High 150 mg/dL * Correction Factor: 15 mg/dL/unit * Nutritional / Prandial insulin per carb ratio of 1 unit per 6 grams CHO consumed
[2022-10-15] MEDS: DOXYCYCLINE HYCLATE 100 MG CAP PO SCH (17:50)
[2022-10-15] MEDS ORDERED: amLODIPine BESYLATE 5 MG TAB PO ONE (18:30)
--- NOTE | 2022-10-15 18:40 | Hospitalist Progress Note ---
Date of Service October 15, 2022 Assessment & Plan (1) Pneumonia: Plan: per Dr. Romero's notes with addendum: 82-year-old male with past medical history significant for type 2 diabetes hyperlipidemia, sleep apnea, hypertension, obesity, BPH presents with cough, shortness of breath, nausea and abdominal pain radiating to the chest. Small bowel obstruction secondary to internal hernia 10/11/2022 status post closure of internal hernia, lysis of adhesions Patient has small bowel obstruction from an internal hernia within the mesentery causing severe dilation of the small bowel and hemorrhagic changes There is also some hemorrhagic change in the mesentery near this area The hernia defect was closed Small bowel was completely viable 10/14/2022 Having some abdominal discomfort today KUB: 1. Borderline dilated gas-filled loops of small bowel have improved. 2. Mildly distended gas and stool-filled colon. This favors a postoperative ileus. 3. Nasogastric tube terminates in the stomach. Continue NG tube, supportive care General surgery on board May need TPN/PPN Continue to monitor 10/15 Feeling improved NG tube removed Tolerating clear liquids Continue to monitor closely Right pleural effusion, chylothorax CT chest obtained - 1. Loculated moderate sized right pleural effusion. 2. Dependent consolidation of the right lung suggestive of compressive atelectasis with near complete collapse of the right lower lobe. Underlying pneumonia would be difficult to exclude. 3. Prior granulomatous disease. 4. Cardiomegaly. 5. Trace upper abdominal ascites. Pulmonary medicine consulted and pt underwent thoracentesis on 10/11/22 w/Dr. Queen - 1300cc of milky fluid obtained. ? chylothorax Follow-up cultures Continue Zosyn plus doxycycline IV day #4 10/15 Respiratory status stable Continue Zosyn plus doxycycline day #5 Hypertension 10/15 Blood pressure still not controlled Increase amlodipine to 10 mg p.o. daily Continue losartan 50 mg p.o. in a.m. As needed hydralazine Hypokalemia P.o. 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 Type 2 diabetes insulin sliding scale Pharmacy consult Current HbA1c 7.0% BSG elevated We will consult pharmacy glycemic control service Sleep apnea CPAP nightly as tolerated DVT prophylaxis - Lovenox Disposition Pending PT and OT evaluate CODE STATUS - full code (2) Acute UTI: (3) Small bowel obstruction: Admission and Anticipated Discharge Date Admission Date: October 11, 2022 Subjective Follow-up for status post internal hernia repair, etc. Seen resting in bed side chair, in good spirits, comfortable NG tube removed today States he feels better compared to yesterday No abdominal pain, nausea vomiting, tolerating clear liquids well No headache, dizziness, chest pain, shortness of breath, cough, fevers or chills No other symptoms Review of Systems Review of Systems: all noted and negative except for above Physical Exam Physical Exam: General- oriented x 3, not in distress, speaks in sentences with no effort or accessory muscle use Eyes- anicteric Neck- no JVD Lungs- clear breath sounds BL Heart- normal rate, regular rhythm; no murmurs Abdomen- normal bowel sounds, nondistended, soft, no tenderness Dressing in place: No bleeding or discharge Extremities- no pretibial edema, no calf tenderness Neuro- alert, oriented x 3; no gross focal neurologic deficits Skin- warm & dry Results & Data Results & Data Vital Signs (Past 12 Hours) Vital Signs Temp Pulse Pulse Resp BP BP Pulse Ox 10/15/22 16:30 36.3 C L 66 18 173/84 H 96 10/15/22 15:17 71 10/15/22 12:55 71 156/79 H 10/15/22 12:00 169/91 H 10/15/22 11:30 36.5 C 75 18 181/96 H 202/95 H 95 10/15/22 10:54 10/15/22 08:00 73 10/15/22 08:09 36.8 C 72 16 184/83 H 91 O2 Del Method 10/15/22 16:30 Room Air 10/15/22 15:17 10/15/22 12:55 10/15/22 12:00 10/15/22 11:30 Room Air 10/15/22 10:54 Room Air 10/15/22 08:00 10/15/22 08:09 Room Air all noted and reviewed including below (1) Pneumonia Laterality: right Lung location: lower lobe of lung Pneumonia type: due to unspecified organism Qualified Code(s): J18.9 - Pneumonia, unspecified organism
[2022-10-15] MEDS: POT PHOSPHATE MONOBASIC W/ SOD TAB PO SCH ×2 (19:39→21:32)
[2022-10-16] MEDS: ACETAMINOPHEN 1,000 MG/100 ML VIAL IV SCH ×2 (02:36→09:36)
[2022-10-16] MEDS: DOXYCYCLINE HYCLATE 100 MG CAP PO SCH (04:35)
[2022-10-16] MEDS: PIPERACILLIN/TAZOBACTAM 4.5 GM in DEXTROSE 5% 100 ML IV SCH (05:21)
[2022-10-16 08:18] LABS: BUN Creatinine Ratio 21.1 (10-20); Calcium 8.5 mg/dl (8.6-10.3); Creatinine Clr Calc Pharmacy 100.5 ml/min; Est GFR (African American) 99.2 ml/min; Est GFR (Non-African American) 85.6 ml/min; Magnesium 1.9 mg/dl (1.7-2.4); Phosphorus 2.6 mg/dl (2.5-4.9); Potassium 3.5 mmol/L (3.5-5.1)
[2022-10-16] MEDS ORDERED: PHARMACY GLYCEMIC MGMT CONSULT PRN (08:49)
[2022-10-16] MEDS ORDERED: LANTUS PER UNIT CHARGE SC SCH (09:00)
--- NOTE | 2022-10-16 09:01 | Pharmacy Report ---
Pharmacy Glycemic Short Note 2 - Date of Service October 16, 2022 - Glycemic Short BSG Results (Last 24 hours): 10/15/22 10/15/22 10/15/22 10:26 11:39 16:21 Glucose 246 H POC Glucose 194 H 146 H 10/15/22 10/16/22 10/16/22 20:06 07:13 07:15 Glucose 228 H POC Glucose 123 H 206 H OUTPATIENT ANTIDIABETIC REGIMEN: * Novolin 70/30: 38 units SC AM, 48 units SC PM * HbA1c: 7.0% (10/11/22) ASSESSMENT: 10/16: * Patient received total of 33 units of insulin yesterday, of which 10 units were basal insulin * Fasting BSG 206 mg/dL - PO intake improved over last 24 hours, will increase to 18 units of basal today * Continue same CF/CR for now 10/15: * BSGs had been stable over past 48 hours while NPO was requiring minimal insulin, Patient has started clear liquid diet this AM * Loosened carb ratio initially with diet this morning, tightened back to previous with lunch- slightly elevated at 194 mg/dL * Continue current lantus, fasting this morning 148 mg/dL- monitor trend 10/13: * BSGs mildly elevated yesterday, ranging 176-209 mg/dL * Patient received 21 units of insulin (~50/50 basal/bolus) * POD #2 - patient remains NPO * Fasting BSG of 171 mg/dL this morning * Given mild BSG elevation yesterday and elevated fasting - will increase basal today 10/12: * Patient has received 4 units of insulin total so far, all bolus. BSGs yesterday were: [phone] mg/dL. * Fasting BSG was 209 mg/dL this AM. Given patient remains NPO on POD #1 s/p exploratory laparotomy, will give a conservative one time dose of basal insulin now. Reassess basal insulin in the AM. * BSGs continuously daniel throughout the day yesterday. Will tighten correctional insulin today. * Remains on IV Zosyn and Doxycycline. 10/11: * Mr Castillo is an 82yo diabetic M admitted with SBO. * He is ordered IV Zosyn and doxycycline and is currently NPO. * BSGs have been below goal thus far. Will use Novolog only for now and initiate some NPH once BSGs above/within goal. * Pharmacy will continue to follow and adjust regimen as indicated. PLAN FOR INPATIENT GLYCEMIC CONTROL: * Basal insulin - increase * Lantus 18 units SC daily * Bolus insulin * NovoLog per scale ACHS or Q6hrs while NPO * Goal Range: Low 110 mg/dL - High 150 mg/dL * Correction Factor: 15 mg/dL/unit * Nutritional / Prandial insulin per carb ratio of 1 unit per 6 grams CHO consumed
[2022-10-16] MEDS: INSULIN ASPART PER UNIT CHARGE SC SCH ×4 (09:34→20:16)
[2022-10-16] MEDS: SENNOSIDES 8.8 MG/5 ML UDC PO SCH ×2 (09:35→20:06)
[2022-10-16] MEDS: POT PHOSPHATE MONOBASIC W/ SOD TAB PO SCH ×4 (09:35→20:07)
[2022-10-16] MEDS: LOSARTAN POTASSIUM 50 MG TAB NG SCH (09:35)
[2022-10-16] MEDS: ENOXAPARIN INJ 40 MG/0.4 ML SYR SQ SCH (09:36)
[2022-10-16] MEDS: POTASSIUM CHLORIDE 20 MEQ/15 ML UDC PO SCH ×2 (09:37→20:08)
--- NOTE | 2022-10-16 10:54 | XRay Report ---
XR chest 1V portable CLINICAL HISTORY: ff up pleural effusion TECHNIQUE: Single frontal radiograph of the chest was obtained. Comparison: Comparison is made to chest radiograph 10/15/2022 FINDINGS: No lines and tubes are seen. Cardiomegaly is noted. The aortic arch is calcified. Atelectasis is note d in the left lower lung. Small to moderate right pleural effusion is seen. IMPRESSION: Small to moderate right pleural effusion is slightly enlarged from prior exam. ACT 112: Negative or not required by law. Electronically signed by: Israel Harper M.D. 10/16/2022 10:52 AM
[2022-10-16] MEDS: amLODIPine BESYLATE 5 MG TAB PO SCH (11:23)
--- NOTE | 2022-10-16 12:06 | Surgery Progress Note ---
I have seen and examined this patient with the surgical PA. I agree with the plan. Date of Service October 16, 2022 Assessment & Plan (1) H/O exploratory laparotomy: Plan: s/p exlap, lysis of adhesions, repair of internal hernia on 10/11 pt tolerated NGT removal yesterday and the start of clears he is having + bowel function, flatus and BMs will advance diet as tolerates continue to encourage ambulation Admission and Anticipated Discharge Date Admission Date: October 11, 2022 Subjective Patient feeling well this AM. Tolerating clears, no nausea/vomiting. Passing flatus and BM's. Requesting diet to be advanced. Physical Exam Physical Exam: awake/alert, sitting in chair Gastrointestinal (Abdomen): Percussion/Palpation: + abdomen tender (some lulu incisional discomfort) and abdomen soft + bowel sounds Results & Data Vital Signs (Past 12 Hours) Vital Signs Temp Pulse Pulse Resp BP Pulse Ox O2 Del Method 10/16/22 11:00 36.6 C 63 18 183/87 H 94 Room Air 10/16/22 11:00 Room Air 10/16/22 07:42 36.8 C 67 19 157/83 H 91 Room Air 10/16/22 07:24 64 10/16/22 02:44 36.4 C L 64 18 155/80 H 91 Room Air 10/16/22 00:52 167/79 H PG Care Time/CCT Total # of Minutes Spent Total Time Spent with Patient: Total time spent is greater than 50% in coordination of care (as documented) at patient's floor/unit and/or counseling patient: Coding Level of Care Code 42027 Post Operative Follow-Up Diagnoses H/O exploratory laparotomy Z98.890
[2022-10-16] MEDS: AMOXICILLIN/CLAVULANATE 875 MG TAB PO SCH ×2 (13:19→21:48)
[2022-10-16] MEDS ORDERED: amLODIPine BESYLATE 5 MG TAB PO ONE (14:02)
--- NOTE | 2022-10-16 14:08 | Hospitalist Progress Note ---
Date of Service October 16, 2022 Assessment & Plan (1) Pneumonia: Plan: per Dr. Romero's notes with addendum: 82-year-old male with past medical history significant for type 2 diabetes hyperlipidemia, sleep apnea, hypertension, obesity, BPH presents with cough, shortness of breath, nausea and abdominal pain radiating to the chest. Small bowel obstruction secondary to internal hernia 10/11/2022 status post closure of internal hernia, lysis of adhesions Patient has small bowel obstruction from an internal hernia within the mesentery causing severe dilation of the small bowel and hemorrhagic changes There is also some hemorrhagic change in the mesentery near this area The hernia defect was closed Small bowel was completely viable 10/14/2022 Having some abdominal discomfort today KUB: 1. Borderline dilated gas-filled loops of small bowel have improved. 2. Mildly distended gas and stool-filled colon. This favors a postoperative ileus. 3. Nasogastric tube terminates in the stomach. Continue NG tube, supportive care General surgery on board May need TPN/PPN Continue to monitor 10/15 Feeling improved NG tube removed Tolerating clear liquids Continue to monitor closely 10/16 Continues to improve Advance diet today gradually Monitor closely Right pleural effusion, chylothorax CT chest obtained - 1. Loculated moderate sized right pleural effusion. 2. Dependent consolidation of the right lung suggestive of compressive atelectasis with near complete collapse of the right lower lobe. Underlying pneumonia would be difficult to exclude. 3. Prior granulomatous disease. 4. Cardiomegaly. 5. Trace upper abdominal ascites. Pulmonary medicine consulted and pt underwent thoracentesis on 10/11/22 w/Dr. Queen - 1300cc of milky fluid obtained. ? chylothorax 10/15 Respiratory status stable Zosyn plus doxycycline day #5 10/16 Continues to do well on room air Denies shortness of breath Repeat chest x-ray: Small pleural effusion on the right Transition to Augmentin 875 twice daily day #1 Hypertension 10/16 Blood pressure still not controlled Increase amlodipine to 10 mg p.o. daily Continue losartan 50 mg p.o. in a.m. As needed hydralazine May need HCTZ Hypokalemia P.o. 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 Type 2 diabetes insulin sliding scale Pharmacy consult Current HbA1c 7.0% BSG elevated We will consult pharmacy glycemic control service Sleep apnea CPAP nightly as tolerated DVT prophylaxis - Lovenox Disposition Pending PT and OT evaluation CODE STATUS - full code (2) Acute UTI: (3) Small bowel obstruction: Admission and Anticipated Discharge Date Admission Date: October 11, 2022 Subjective Follow-up for internal hernia, s/p repair, right pleural effusion-chylothorax, etc. Seen resting in bedside chair, comfortable, not in distress On room air States he continues to feel better Abdominal pain continues to improve, tolerating clear diet well Positive bowel movements x2 States breathing is okay, no shortness of breath, intermittent cough, nonproductive No fevers or chills No other new symptoms Review of Systems Review of Systems: all noted and negative except for above Physical Exam Physical Exam: General- oriented x 3, not in distress, speaks in sentences with no effort or accessory muscle use Eyes- anicteric Neck- no JVD Lungs-clear breath sounds, no rales or wheezing bilaterally Heart- normal rate, regular rhythm; no murmurs Abdomen- normal bowel sounds, nondistended, soft, no tenderness Dressing in place: No bleeding or discharge Extremities- no pretibial edema, no calf tenderness Neuro- alert, oriented x 3; no gross focal neurologic deficits Skin- warm & dry Results & Data Results & Data Vital Signs (Past 12 Hours) Vital Signs Temp Pulse Pulse Resp BP Pulse Ox O2 Del Method 10/16/22 11:00 36.6 C 63 18 183/87 H 94 Room Air 10/16/22 11:00 Room Air 10/16/22 07:42 36.8 C 67 19 157/83 H 91 Room Air 10/16/22 07:24 64 10/16/22 02:44 36.4 C L 64 18 155/80 H 91 Room Air all noted and reviewed including below (1) Pneumonia Laterality: right Lung location: lower lobe of lung Pneumonia type: due to unspecified organism Qualified Code(s): J18.9 - Pneumonia, unspecified organism
[2022-10-16] MEDS: LANTUS PER UNIT CHARGE SC SCH (20:06)
[2022-10-16] MEDS: hydrALAZINE HCL 20 MG/ML VIAL IV PRN (23:17)
[2022-10-17] MEDS ORDERED: INSULIN ASPART PER UNIT CHARGE SC SCH
[2022-10-17] MEDS: INSULIN ASPART PER UNIT CHARGE SC SCH ×4 (08:28→20:05)
[2022-10-17] MEDS: POT PHOSPHATE MONOBASIC W/ SOD TAB PO SCH ×4 (08:29→19:48)
[2022-10-17] MEDS: AMOXICILLIN/CLAVULANATE 875 MG TAB PO SCH ×2 (08:30→19:48)
[2022-10-17] MEDS: ENOXAPARIN INJ 40 MG/0.4 ML SYR SQ SCH (08:30)
[2022-10-17] MEDS: POTASSIUM CHLORIDE 20 MEQ/15 ML UDC PO SCH ×2 (08:30→19:47)
[2022-10-17] MEDS: LOSARTAN POTASSIUM 50 MG TAB NG SCH (08:31)
[2022-10-17] MEDS: amLODIPine BESYLATE 5 MG TAB PO SCH (08:31)
[2022-10-17] MEDS: SENNOSIDES 8.8 MG/5 ML UDC PO SCH ×2 (08:32→19:47)
[2022-10-17 08:40] LABS: BUN Creatinine Ratio 22.6 (10-20); Calcium 8.4 mg/dl (8.6-10.3); Creatinine Clr Calc Pharmacy 90.8 ml/min; Est GFR (African American) 95.2 ml/min; Est GFR (Non-African American) 82.1 ml/min; Potassium 3.8 mmol/L (3.5-5.1)
[2022-10-17] MEDS ORDERED: LANTUS PER UNIT CHARGE SC SCH (09:00)
--- NOTE | 2022-10-17 11:58 | Surgery Progress Note ---
I have seen and examined this patient with the surgical PA this am to devise further plan. I agree with the plan as written. Date of Service October 17, 2022 Assessment & Plan (1) H/O exploratory laparotomy: Plan: 10/17/2022 Mr. Castillo is s/p Ex Lap, WINNIE, Repair of Internal Hernia with Dr. San on 10/11. He is doing well and continues to improve each day. Incision is healing well with no concerns for infection. Order placed to d/c patino catheter. He is tolerating a low fiber diet. Ambulation was highly encouraged. Tentative plan is to discharge to home possibly Wednesday. Patient is working with PT/OT- appreciate their recommendations. Patient see and examined with Dr. Kingsley. 10/16/2022 s/p exlap, lysis of adhesions, repair of internal hernia on 10/11 pt tolerated NGT removal yesterday and the start of clears he is having + bowel function, flatus and BMs will advance diet as tolerates continue to encourage ambulation Admission and Anticipated Discharge Date Admission Date: October 11, 2022 Subjective Mr. Castillo is resting in chair at bedside. He reports that he is feeling well. His pain is controlled. He is tolerating lower fiber diet. Patino catheter in place. Review of Systems Constitutional: no fever and no chills Respiratory: no cough and no dyspnea Cardiovascular: no chest pain, no chest pain at rest, no chest pain with activity and no dyspnea Gastrointestinal: + abdominal pain (expected at incision site- but continues to improve. ); no nausea and no vomiting Physical Exam Physical Exam: awake/alert, sitting in chair Constitutional: WD/WN, vitals as above Respiratory: normal respiratory effort; no respiratory distress and no labored breathing Gastrointestinal (Abdomen): Percussion/Palpation: + abdomen tender (some lulu incisional discomfort) and abdomen soft + bowel sounds Results & Data Vital Signs (Past 12 Hours) Vital Signs Temp Pulse Pulse Resp BP Pulse Ox O2 Del Method 10/17/22 09:34 Room Air 10/17/22 07:52 36.6 C 72 17 148/77 H 91 Room Air 10/17/22 07:27 72 10/17/22 03:00 36.6 C 72 18 136/70 93 Room Air 10/17/22 00:00 64 PG Care Time/CCT Total # of Minutes Spent Total Time Spent with Patient: Total time spent is greater than 50% in coordination of care (as documented) at patient's floor/unit and/or counseling patient: Coding Level of Care Code 35685 Post Operative Follow-Up Diagnoses H/O exploratory laparotomy Z98.890
--- NOTE | 2022-10-17 16:58 | Hospitalist Progress Note ---
Date of Service October 17, 2022 Assessment & Plan (1) Pneumonia: Plan: per Dr. Romero's notes with addendum: 82-year-old male with past medical history significant for type 2 diabetes hyperlipidemia, sleep apnea, hypertension, obesity, BPH presents with cough, shortness of breath, nausea and abdominal pain radiating to the chest. Small bowel obstruction secondary to internal hernia 10/11/2022 status post closure of internal hernia, lysis of adhesions Patient has small bowel obstruction from an internal hernia within the mesentery causing severe dilation of the small bowel and hemorrhagic changes There is also some hemorrhagic change in the mesentery near this area The hernia defect was closed Small bowel was completely viable 10/14/2022 Having some abdominal discomfort today KUB: 1. Borderline dilated gas-filled loops of small bowel have improved. 2. Mildly distended gas and stool-filled colon. This favors a postoperative ileus. 3. Nasogastric tube terminates in the stomach. Continue NG tube, supportive care General surgery on board May need TPN/PPN Continue to monitor 10/15 Feeling improved NG tube removed Tolerating clear liquids Continue to monitor closely 10/16 Continues to improve Advance diet today gradually Monitor closely 10/17 Remains stable overall, clinically improving Tolerating diet PT and OT in progress OT recommending inpatient rehab, continue daily reevaluation as patient prefers to go home to take care of his Right pleural effusion, chylothorax CT chest obtained - 1. Loculated moderate sized right pleural effusion. 2. Dependent consolidation of the right lung suggestive of compressive atelectasis with near complete collapse of the right lower lobe. Underlying pneumonia would be difficult to exclude. 3. Prior granulomatous disease. 4. Cardiomegaly. 5. Trace upper abdominal ascites. Pulmonary medicine consulted and pt underwent thoracentesis on 10/11/22 w/Dr. Queen - 1300cc of milky fluid obtained. ? chylothorax 10/15 Respiratory status stable Zosyn plus doxycycline day #5 10/16 Continues to do well on room air Denies shortness of breath Repeat chest x-ray: Small pleural effusion on the right Transition to Augmentin 875 twice daily day #1 10/17 Stable Continue Augmentin twice daily day #2 Hypertension 10/17 Blood pressure better Hold amlodipine Continue losartan 50 mg daily Monitor closely Hypokalemia P.o. 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 Type 2 diabetes insulin sliding scale Pharmacy consult Current HbA1c 7.0% BSG elevated We will consult pharmacy glycemic control service Sleep apnea CPAP nightly as tolerated DVT prophylaxis - Lovenox Disposition OT in progress CODE STATUS - full code (2) Acute UTI: (3) Small bowel obstruction: Admission and Anticipated Discharge Date Admission Date: October 11, 2022 Subjective Follow-up for internal hernia status postrepair, etc. Seen sitting up in bedside chair, comfortable, not in distress States he continues to feel improved overall Minimal abdominal discomfort, no nausea or vomiting, tolerating diet well No dizziness, chest pain, shortness of breath No other symptoms Review of Systems Review of Systems: all noted and negative except for above Physical Exam Physical Exam: General- oriented x 3, not in distress, speaks in sentences with no effort or accessory muscle use Eyes- anicteric Neck- no JVD Lungs- clear breath sounds bilaterally, no crackles, no wheezing noted Heart- normal rate, regular rhythm; no murmurs Abdomen- normal bowel sounds, nondistended, soft, nontender Dressing in place: No bleeding or discharge Extremities- no pretibial edema, no calf tenderness Neuro- alert, oriented x 3; no gross focal neurologic deficits Skin- warm & dry Results & Data Results & Data Vital Signs (Past 12 Hours) Vital Signs Temp Pulse Pulse Resp BP BP Pulse Ox 10/17/22 16:12 70 10/17/22 15:06 36.8 C 70 20 116/65 96 10/17/22 11:53 36.7 C 63 18 116/67 97 10/17/22 09:34 10/17/22 07:52 36.6 C 72 17 148/77 H 91 10/17/22 07:27 72 O2 Del Method 10/17/22 16:12 10/17/22 15:06 Room Air 10/17/22 11:53 Room Air 10/17/22 09:34 Room Air 10/17/22 07:52 Room Air 10/17/22 07:27 all noted and reviewed including below (1) Pneumonia Laterality: right Lung location: lower lobe of lung Pneumonia type: due to unspecified organism Qualified Code(s): J18.9 - Pneumonia, unspecified organism
[2022-10-17] MEDS: LANTUS PER UNIT CHARGE SC SCH (20:02)
[2022-10-18 06:24] LABS: BUN Creatinine Ratio 32.5 (10-20); Calcium 8.5 mg/dl (8.6-10.3); Creatinine Clr Calc Pharmacy 95.4 ml/min; Est GFR (African American) 97.1 ml/min; Est GFR (Non-African American) 83.8 ml/min
[2022-10-18] MEDS: INSULIN ASPART PER UNIT CHARGE SC SCH ×4 (08:22→19:58)
[2022-10-18] MEDS: AMOXICILLIN/CLAVULANATE 875 MG TAB PO SCH ×2 (08:23→21:48)
[2022-10-18] MEDS: ENOXAPARIN INJ 40 MG/0.4 ML SYR SQ SCH (08:23)
[2022-10-18] MEDS: LOSARTAN POTASSIUM 50 MG TAB NG SCH (08:24)
[2022-10-18] MEDS: POT PHOSPHATE MONOBASIC W/ SOD TAB PO SCH ×4 (08:24→21:48)
[2022-10-18] MEDS: POTASSIUM CHLORIDE 20 MEQ/15 ML UDC PO SCH ×2 (08:25→21:48)
[2022-10-18] MEDS: SENNOSIDES 8.8 MG/5 ML UDC PO SCH ×2 (08:26→21:49)
[2022-10-18] MEDS ORDERED: LANTUS PER UNIT CHARGE SC SCH (09:00)
--- NOTE | 2022-10-18 11:41 | Surgery Progress Note ---
I saw and examined this patient with the surgical PA. I agree with this plan. Date of Service October 18, 2022 Assessment & Plan (1) H/O exploratory laparotomy: Plan: 10/18/2022 Mr. Castillo is s/p Ex Lap, WINNIE, Repair of Internal Hernia with Dr. San on 10/11. Incision continues to heal well with no signs of infection. Patino catheter has been removed and he has been voiding on his own without issue. He continues to tolerate a low fiber diet. Ambulation was highly encouraged. Tentative plan is to discharge to home possibly Wednesday. Patient is working with PT/OT- appreciate their recommendations. Patient see and examined with Dr. Kingsley. 10/17/2022 Mr. Castillo is s/p Ex Lap, WINNIE, Repair of Internal Hernia with Dr. Sna on 10/11. He is doing well and continues to improve each day. Incision is healing well with no concerns for infection. Order placed to d/c patino catheter. He is tolerating a low fiber diet. Ambulation was highly encouraged. Tentative plan is to discharge to home possibly Wednesday. Patient is working with PT/OT- appreciate their recommendations. Patient see and examined with Dr. Kingsley. 10/16/2022 s/p exlap, lysis of adhesions, repair of internal hernia on 10/11 pt tolerated NGT removal yesterday and the start of clears he is having + bowel function, flatus and BMs will advance diet as tolerates continue to encourage ambulation Admission and Anticipated Discharge Date Admission Date: October 11, 2022 Subjective Mr. Castillo is doing well this morning. He denies abdominal pain, nausea or vomiting. He is tolerating a low fiber diet. Review of Systems Constitutional: no fever and no chills Respiratory: no cough and no dyspnea Cardiovascular: no chest pain, no chest pain at rest, no chest pain with activity and no dyspnea Gastrointestinal: + abdominal pain (expected at incision site- but continues to improve. ); no nausea and no vomiting Physical Exam Physical Exam: awake/alert, sitting in chair Constitutional: WD/WN, vitals as above Respiratory: normal respiratory effort; no respiratory distress and no labored breathing Gastrointestinal (Abdomen): Percussion/Palpation: + abdomen tender (some lulu incisional discomfort) and abdomen soft Results & Data Vital Signs (Past 12 Hours) Vital Signs Temp Pulse Pulse Resp BP BP Pulse Ox 10/18/22 11:33 36.7 C 68 150/77 H 96 10/18/22 08:00 10/18/22 08:00 74 10/18/22 07:33 36.9 C 75 18 161/80 H 91 10/18/22 03:46 36.7 C 73 18 147/78 H 93 10/17/22 23:52 66 O2 Del Method 10/18/22 11:33 Room Air 10/18/22 08:00 Room Air 10/18/22 08:00 10/18/22 07:33 Room Air 10/18/22 03:46 Room Air 10/17/22 23:52 PG Care Time/CCT Total # of Minutes Spent Total Time Spent with Patient: Total time spent is greater than 50% in coordination of care (as documented) at patient's floor/unit and/or counseling patient: Coding Level of Care Code 49560 Post Operative Follow-Up Diagnoses H/O exploratory laparotomy Z98.890
--- NOTE | 2022-10-18 16:56 | Hospitalist Progress Note ---
Date of Service October 18, 2022 Assessment & Plan (1) Pneumonia: Plan: per Dr. Romero's notes with addendum: 82-year-old male with past medical history significant for type 2 diabetes hyperlipidemia, sleep apnea, hypertension, obesity, BPH presents with cough, shortness of breath, nausea and abdominal pain radiating to the chest. Small bowel obstruction secondary to internal hernia 10/11/2022 status post closure of internal hernia, lysis of adhesions Patient has small bowel obstruction from an internal hernia within the mesentery causing severe dilation of the small bowel and hemorrhagic changes There is also some hemorrhagic change in the mesentery near this area The hernia defect was closed Small bowel was completely viable 10/14/2022 Having some abdominal discomfort today KUB: 1. Borderline dilated gas-filled loops of small bowel have improved. 2. Mildly distended gas and stool-filled colon. This favors a postoperative ileus. 3. Nasogastric tube terminates in the stomach. Continue NG tube, supportive care General surgery on board May need TPN/PPN Continue to monitor 10/15 Feeling improved NG tube removed Tolerating clear liquids Continue to monitor closely 10/16 Continues to improve Advance diet today gradually Monitor closely 10/17 Remains stable overall, clinically improving Tolerating diet PT and OT in progress OT recommending inpatient rehab, continue daily reevaluation as patient prefers to go home to take care of his 10/18 Stable Tolerating diet well Positive BMs Right pleural effusion, chylothorax CT chest obtained - 1. Loculated moderate sized right pleural effusion. 2. Dependent consolidation of the right lung suggestive of compressive atelectasis with near complete collapse of the right lower lobe. Underlying pneumonia would be difficult to exclude. 3. Prior granulomatous disease. 4. Cardiomegaly. 5. Trace upper abdominal ascites. Pulmonary medicine consulted and pt underwent thoracentesis on 10/11/22 w/Dr. Queen - 1300cc of milky fluid obtained. ? chylothorax 10/15 Respiratory status stable Zosyn plus doxycycline day #5 10/16 Continues to do well on room air Denies shortness of breath Repeat chest x-ray: Small pleural effusion on the right Transition to Augmentin 875 twice daily day #1 10/18 Stable Continue Augmentin twice daily day #3 Hypertension 10/18 Blood pressure better resume Amlodipine Continue losartan 50 mg daily Monitor closely Hypokalemia P.o. 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 Type 2 diabetes insulin sliding scale Pharmacy consult Current HbA1c 7.0% BSG elevated We will consult pharmacy glycemic control service Sleep apnea CPAP nightly as tolerated DVT prophylaxis - Lovenox Disposition OT in progress CODE STATUS - full code (2) Acute UTI: (3) Small bowel obstruction: Admission and Anticipated Discharge Date Admission Date: October 11, 2022 Subjective Follow-up for internal hernia repair, etc. Seen sitting up in bed comfortable, not in distress States he feels fine overall Minimal discomfort over the surgical site Denies shortness of breath, cough No fevers or chills States he ambulated yesterday with no problems States he will be able to manage at home with home health services including PT and OT Review of Systems Review of Systems: all noted and negative except for above Physical Exam Physical Exam: General- oriented x 3, not in distress, speaks in sentences with no effort or accessory muscle use Eyes- anicteric Neck- no JVD Lungs- clear BS BL Heart- normal rate, regular rhythm; no murmurs Abdomen- normal bowel sounds, nondistended, soft, nontender Dressing in place: No bleeding or discharge Extremities- no pretibial edema, no calf tenderness Neuro- alert, oriented x 3; no gross focal neurologic deficits Skin- warm & dry Results & Data Results & Data Vital Signs (Past 12 Hours) Vital Signs Temp Pulse Pulse Resp BP BP Pulse Ox 10/18/22 16:00 65 10/18/22 15:16 36.7 C 67 18 157/78 H 95 10/18/22 11:33 36.7 C 68 150/77 H 96 10/18/22 08:00 10/18/22 08:00 74 10/18/22 07:33 36.9 C 75 18 161/80 H 91 O2 Del Method 10/18/22 16:00 10/18/22 15:16 Room Air 10/18/22 11:33 Room Air 10/18/22 08:00 Room Air 10/18/22 08:00 10/18/22 07:33 Room Air all noted and reviewed including below (1) Pneumonia Laterality: right Lung location: lower lobe of lung Pneumonia type: due to unspecified organism Qualified Code(s): J18.9 - Pneumonia, unspecified organism
[2022-10-18] MEDS: LANTUS PER UNIT CHARGE SC SCH (19:59)
[2022-10-19] MEDS: hydrALAZINE HCL 20 MG/ML VIAL IV PRN (03:13)
[2022-10-19 07:46] LABS: BUN Creatinine Ratio 24.7 (10-20); Calcium 8.5 mg/dl (8.6-10.3); Creatinine Clr Calc Pharmacy 86.1 ml/min; Est GFR (African American) 92.9 ml/min; Est GFR (Non-African American) 80.2 ml/min; Potassium 4.4 mmol/L (3.5-5.1)
--- NOTE | 2022-10-19 08:29 | Pharmacy Report ---
Pharmacy Glycemic Short Note 2 - Date of Service October 19, 2022 - Glycemic Short BSG Results (Last 24 hours): 10/18/22 10/18/22 10/18/22 11:24 16:07 19:51 Glucose POC Glucose 182 H 116 H 122 H 10/19/22 10/19/22 06:23 07:22 Glucose 168 H POC Glucose 186 H OUTPATIENT ANTIDIABETIC REGIMEN: * Novolin 70/30: 38 units SC AM, 48 units SC PM * HbA1c: 7.0% (10/11/22) ASSESSMENT: 10/19: * BSGs yesterday of 191, 182, 116, and 122 mg/dL * Received 61 units of insulin yesterday (25 units of basal and 36 units of prandial/correctional bolus) * Fasting BSG remains elevated at 186 mg/dL this morning - will increase basal 10/16: * Patient received total of 33 units of insulin yesterday, of which 10 units were basal insulin * Fasting BSG 206 mg/dL - PO intake improved over last 24 hours, will increase t o 18 units of basal today * Continue same CF/CR for now 10/12: * Patient has received 4 units of insulin total so far, all bolus. BSGs yesterday were: [phone] mg/dL. * Fasting BSG was 209 mg/dL this AM. Given patient remains NPO on POD #1 s/p exploratory laparotomy, will give a conservative one time dose of basal insulin now. Reassess basal insulin in the AM. * BSGs continuously daniel throughout the day yesterday. Will tighten correctional insulin today. * Remains on IV Zosyn and Doxycycline. 10/11: * Mr Castillo is an 82yo diabetic M admitted with SBO. * He is ordered IV Zosyn and doxycycline and is currently NPO. * BSGs have been below goal thus far. Will use Novolog only for now and initiate some NPH once BSGs above/within goal. * Pharmacy will continue to follow and adjust regimen as indicated. PLAN FOR INPATIENT GLYCEMIC CONTROL: * Basal insulin - increase * Lantus 30 units SC daily * Bolus insulin * NovoLog per scale ACHS or Q6hrs while NPO * Goal Range: Low 110 mg/dL - High 150 mg/dL * Correction Factor: 12 mg/dL/unit at breakfast and 15 mg/dL/unit at lunch, dinner, and HS * Nutritional / Prandial insulin per carb ratio of 1 unit per 4.5 grams CHO consumed at breakfast and 6 grams CHO consumed at lunch, dinner, and HS
[2022-10-19] MEDS: INSULIN ASPART PER UNIT CHARGE SC SCH ×2 (08:50→11:58)
[2022-10-19] MEDS: ENOXAPARIN INJ 40 MG/0.4 ML SYR SQ SCH (08:50)
[2022-10-19] MEDS: POT PHOSPHATE MONOBASIC W/ SOD TAB PO SCH ×2 (08:51→12:00)
[2022-10-19] MEDS: SENNOSIDES 8.8 MG/5 ML UDC PO SCH (08:51)
[2022-10-19] MEDS: POTASSIUM CHLORIDE 20 MEQ/15 ML UDC PO SCH (08:52)
[2022-10-19] MEDS: LOSARTAN POTASSIUM 50 MG TAB NG SCH (08:52)
[2022-10-19] MEDS: AMOXICILLIN/CLAVULANATE 875 MG TAB PO SCH (08:52)
[2022-10-19] MEDS: amLODIPine BESYLATE 5 MG TAB PO SCH (08:53)
[2022-10-19] MEDS ORDERED: LANTUS PER UNIT CHARGE SC SCH (09:00)
[2022-10-19 09:36] LABS: Phosphorus 3.7 mg/dl (2.5-4.9)
--- NOTE | 2022-10-19 11:30 | Surgery Progress Note ---
This patient was seen and examined with the surgical PA. I agree with the plan. Date of Service October 19, 2022 Assessment & Plan (1) H/O exploratory laparotomy: Plan: S/p ex Lap, WINNIE, Repair of Internal Hernia with Dr. Souza on 10/11. Incision continues to heal well with no signs of infection. There is a small R abdominal skin tear noted, would order bacitracin He continues to tolerate a low fiber diet, pain controlled Encourage ongoing ambulation as tolerates PT/OT planning on working with patient today for dispo planning. May be discharged from our standpoint F/u in clinic within 1-[address] souza for check up and staple removal Patient see and examined with Dr. Kingsley. Admission and Anticipated Discharge Date Admission Date: October 11, 2022 Subjective Patient sitting up in chair. Offers no complaints. Pain manageable, tolerating diet. Physical Exam Physical Exam: awake/alert, no distress Respiratory: normal respiratory effort Gastrointestinal (Abdomen): Inspection/Auscultation: + abdominal surgical incision (c/d/i with midline birdie, no signs of infection) Percussion/Palpation: abdomen soft; abdomen nontender R mid/lower skin tear noted Results & Data Vital Signs (Past 12 Hours) Vital Signs Temp Pulse Pulse Resp BP Pulse Ox O2 Del Method 10/19/22 11:25 36.9 C 69 20 138/72 93 Room Air 10/19/22 09:25 Room Air 10/19/22 08:00 73 10/19/22 07:27 36.7 C 68 18 169/86 H 92 Room Air 10/19/22 02:59 36.8 C 68 16 175/81 H 94 Room Air PG Care Time/CCT Total # of Minutes Spent Total Time Spent with Patient: Total time spent is greater than 50% in coordination of care (as documented) at patient's floor/unit and/or counseling patient: Coding Level of Care Code 01582 Post Operative Follow-Up Diagnoses H/O exploratory laparotomy Z98.890
[2022-10-19] MEDS ORDERED: POLYETHYLENE (MIRALAX) 17 GM PACK PO SCH (12:00)
--- NOTE | 2022-10-19 12:07 | Hospitalist Progress Note ---
Date of Service October 19, 2022 delayed entry date of service noted above Assessment & Plan (1) Small bowel obstruction: Plan: per Dr. Romero's notes with addendum: 82-year-old male with past medical history significant for type 2 diabetes hyperlipidemia, sleep apnea, hypertension, obesity, BPH presents with cough, shortness of breath, nausea and abdominal pain radiating to the chest. Small bowel obstruction secondary to internal hernia 10/11/2022 status post closure of internal hernia, lysis of adhesions Patient has small bowel obstruction from an internal hernia within the mesentery causing severe dilation of the small bowel and hemorrhagic changes There is also some hemorrhagic change in the mesentery near this area The hernia defect was closed Small bowel was completely viable Remains stable overall, clinically improving Tolerating diet Follow-up with general surgery in 1 to 2 weeks possible Right pleural effusion, chylothorax CT chest obtained - 1. Loculated moderate sized right pleural effusion. 2. Dependent consolidation of the right lung suggestive of compressive atelectasis with near complete collapse of the right lower lobe. Underlying pneumonia would be difficult to exclude. 3. Prior granulomatous disease. 4. Cardiomegaly. 5. Trace upper abdominal ascites. Pulmonary medicine consulted and pt underwent thoracentesis on 10/11/22 w/Dr. Queen - 1300cc of milky fluid obtained, possible chylothorax Respiratory status stable Given Zosyn plus doxycycline Continues to do well on room air Denies shortness of breath Repeat chest x-ray: Small pleural effusion on the right Transition to Augmentin 875 twice daily Repeat chest x-ray in 1 to 2 weeks Hypertension Amlodipine 5 mg daily added for better blood pressure control Continue losartan 50 mg daily Monitor closely Hypokalemia P.o. 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 Type 2 diabetes insulin sliding scale Pharmacy consult Current HbA1c 7.0% Sleep apnea CPAP nightly as tolerated DVT prophylaxis - Lovenox Disposition Discharged home Follow-up with PCP in 1 week Follow-up with general surgery in 1 week Admission and Anticipated Discharge Date Admission Date: October 11, 2022 Subjective Follow-up for internal hernia status postrepair, Seen resting in bed side chair, comfortable, not in distress He feels much better overall Denies abdominal pain, nausea vomiting, positive BM no shortness of breath, cough, fevers or chills States he ambulated in the halls with no problems States he is ready for discharge to home Review of Systems Review of Systems: all noted and negative except for above Physical Exam Physical Exam: General- oriented x 3, not in distress, speaks in sentences with no effort or accessory muscle use Eyes- anicteric Neck- no JVD Lungs- clear breath sounds bilaterally, no rales/wheezes Heart- normal rate, regular rhythm; no murmurs Abdomen- normal bowel sounds, nondistended, soft, nontender Dressing in place, no bleeding or discharge Extremities- no pretibial edema, no calf tenderness Neuro- alert, oriented x 3; no gross focal neurologic deficits Skin- warm & dry Results & Data Results & Data Vital Signs (Past 12 Hours) Vital Signs Temp Pulse Pulse Resp BP Pulse Ox O2 Del Method 10/19/22 11:25 36.9 C 69 20 138/72 93 Room Air 10/19/22 09:25 Room Air 10/19/22 08:00 73 10/19/22 07:27 36.7 C 68 18 169/86 H 92 Room Air 10/19/22 02:59 36.8 C 68 16 175/81 H 94 Room Air all noted and reviewed including below
--- NOTE | 2022-10-19 19:36 | Discharge Summary ---
Discharge Summary Date of Service October 19, 2022 delayed entry date of service noted above Notes For Next Care Provider Right renal mass Complex cyst, possible neoplasm Was also seen on CAT scan done recently as outpatient Needs follow-up with urology. Medication Changes From Visit Augmentin-antibiotic for pneumonia Amlodipine-for better blood pressure control MiraLAX-stool softener, to prevent constipation Admission HPI Per Admitting Provider 82-year-old male with past medical history significant for type 2 diabetes, hyperlipidemia, sleep apnea, varicose veins of the legs, hypertension, obesity, BPH, history of left renal mass, injury to ligament of cervical spine, ventral hernia, s/p discectomy who lives at home with his ambulates with a cane comes because of cough, shortness of breath and abdominal pain and found to have small bowel obstruction, right pleural effusion and possible pneumonia and UTI. Patient states that he has cough for several months but got worse last 2 days, was short of breath when he came in but feeling better now. Since last 2-3 he was also having severe abdominal pain radiating to into his chest and was nauseous. Says no bowel movement since last 3 days but passing gas. Appetite is down. Denies any fevers. No headaches. No blurred visions. No sore throat. No fevers. Normal bladder movements. Currently resting comfortably and hemodynamically stable. Admission Exam Per Admitting Provider K General- adult Head- atraumatic Eyes- PERRL, ENT- oropharynx clear Neck- supple, no JVD, Lungs- clear to auscultation and percussion Heart- regular rhythm; no murmur, no gallop, no rub appreciated Abdomen- normal bowel sounds, distended, diffuse mild tenderness Extremities- no pretibial edema, no erythema. Neuro- alert, oriented x 3; PERRL, no facial palsy; no dysarthria;non focal Skin- warm & dry Principal Dx & Hospital Course #1 = Principal Diagnosis (1) Pneumonia: (1) Small bowel obstruction: Plan: per Dr. Romero's notes with addendum: 82-year-old male with past medical history significant for type 2 diabetes hyperlipidemia, sleep apnea, hypertension, obesity, BPH presents with cough, shortness of breath, nausea and abdominal pain radiating to the chest. Small bowel obstruction secondary to internal hernia 10/11/2022 status post closure of internal hernia, lysis of adhesions Patient has small bowel obstruction from aninternal herniawithin the mesentery causing severe dilation of the small bowel and hemorrhagic changes There is also some hemorrhagic change in the mesentery near this area The hernia defect was closed Small bowel was completely viable Remains stable overall, clinically improving Tolerating diet Follow-up with general surgery in 1 to 2 weeks possible Right pleural effusion, chylothorax CT chest obtained -1. Loculated moderate sized right pleural effusion. 2. Dependent consolidation of the right lung suggestive of compressive atelectasis with near complete collapse of the right lower lobe. Underlying pneumonia would be difficult to exclude. 3. Prior granulomatous disease. 4. Cardiomegaly. 5. Trace upper abdominal ascites. Pulmonary medicine consulted and pt underwent thoracentesis on 10/11/22 w/Dr. Queen - 1300cc of milky fluid obtained, possible chylothorax Respiratory status stable Given Zosyn plus doxycycline Continues to do well on room air Denies shortness of breath Repeat chest x-ray: Small pleural effusion on the right Transition to Augmentin 875 twice daily Repeat chest x-ray in 1 to 2 weeks Hypertension Amlodipine 5 mg daily added for better blood pressure control Continue losartan 50 mg daily Monitor closely Hypokalemia P.o. potassium ordered FE - Cr up 1.5 - back to baseline - nephrology consulted Right renal mass Complex cyst, possible neoplasm Was also seen on CAT scan done recently as outpatient Needs close follow-up with urology. Type 2 diabetes insulin sliding scale Pharmacy consult Current HbA1c 7.0% Sleep apnea CPAP nightly as tolerated DVT prophylaxis - Lovenox Disposition Discharged home Follow-up with PCP in 1 week Follow-up with general surgery in 1 weekSeen Discharge Exam General- oriented x 3, not in distress, speaks in sentences with no effort or accessory muscle use Eyes- anicteric Neck- no JVD Lungs- clear breath sounds bilaterally, no rales/wheezes Heart- normal rate, regular rhythm; no murmurs Abdomen- normal bowel sounds, nondistended, soft, nontender Dressing in place, no bleeding or discharge Extremities- no pretibial edema, no calf tenderness Neuro- alert, oriented x 3; no gross focal neurologic deficits Skin- warm & dry Updated Medication List Medication Instructions Recorded Confirmed Type cholecalciferol (vitamin D3) 25 1,000 units PO DAILY 10/31/18 10/10/22 History mcg (1,000 unit) capsule cyanocobalamin (vitamin B-12) 1,000 mcg PO DAILY #30 tabs 10/31/18 10/10/22 History 1,000 mcg tablet,extended release insulin syringes (disposable) 1 mL #500 ea 10/31/18 08/20/21 History losartan 50 mg tablet 50 mg PO DAILY 05/31/19 10/10/22 History BD Ultra-Fine Orig Pen Needle 29 #200 ea 04/09/20 08/20/21 Rx gauge x 1/2" (pen needle, diabetic) aspirin 81 mg chewable tablet 81 mg PO DAILY #30 tabs 08/15/20 10/10/22 Rx (Aspirin Childrens) blood sugar diagnostic (OneTouch #200 ea 08/16/20 08/20/21 Rx Verio test strips) blood-glucose meter (OneTouch #1 ea 08/21/20 08/20/21 Rx Verio Flex Start kit) insulin NPH-regular 70-30 U-100 See Rx Instructions .Route 10/23/21 10/10/22 Rx insulin 100 unit/mL subcutaneous .COMPLEX #90 mL pen (Novolin 70-30 FlexPen U-100 Insulin) amlodipine 5 mg tablet (Norvasc) 5 mg PO QAM 30 days #30 tabs 10/19/22 Rx polyethylene glycol 3350 17 gram 17 g PO DAILY 7 days #14 ea 10/19/22 Rx oral powder packet (Miralax) Hospital Stay Data Consultations 10/10/22 22:57 ED Decision to Admit Stat 10/10/22 23:00 Consult General Surgery Routine 10/11/22 08:00 Consult Pulmonology Routine 10/11/22 11:44 Consult Composing Room Machinist Apprentice Routine 10/12/22 08:11 Consult Nephrology Routine Procedures Performed Operation Date: 10/11/22 14:00 Actual Procedures p Abdominal exploration, lysis of adhesions, closure of internal hernia. - Naheed San MD, FACS Diagnostic Imagining Performed Laboratory Results WBC 7.92 K/ul (4.8-10.8) 10/14/22 05:57 RBC 4.34 M/uL (4.70-6.10) L 10/14/22 05:57 Hgb 12.2 g/dl (14.0-18.0) L 10/14/22 05:57 Hct 37.8 % (42.0-52.0) L 10/14/22 05:57 MCV 87.1 fL (80.0-100.0) 10/14/22 05:57 MCH 28.1 pg (25.0-34.0) 10/14/22 05:57 MCHC 32.3 g/dL (32.0-36.0) 10/14/22 05:57 RDW Std Deviation 45.1 fL (36.4-46.3) 10/14/22 05:57 RDW Coeff of Dora 14.0 % (11.5-14.5) 10/14/22 05:57 Plt Count 141 K/uL (130-400) 10/14/22 05:57 MPV 11.2 fL (9.4-12.4) 10/14/22 05:57 Immature Gran % (Auto) 0.2 % 10/11/22 05:22 Neut % (Auto) 78.0 % 10/11/22 05:22 Lymph % (Auto) 5.9 % 10/11/22 05:22 [place] % (Auto) 15.6 % 10/11/22 05:22 Eos % (Auto) 0.0 % 10/11/22 05:22 Baso % (Auto) 0.3 % 10/11/22 05:22 Neut # (Auto) 4.91 K/uL (1.40-6.50) 10/11/22 05:22 Lymph # (Auto) 0.37 K/uL (1.2-3.4) L 10/11/22 05:22 [place] # (Auto) 0.98 K/uL (0.11-0.59) H 10/11/22 05:22 Eos # (Auto) 0.00 K/uL (0-0.50) 10/11/22 05:22 Baso # (Auto) 0.02 K/uL (0-0.2) 10/11/22 05:22 Immature Gran # (Auto) 0.01 K/uL (0.01-0.20) 10/11/22 05:22 Sodium 141 mmol/L (136-145) 10/19/22 06:23 Potassium 4.4 mmol/L (3.5-5.1) 10/19/22 06:23 Chloride 106 mmol/L (98-107) 10/19/22 06:23 Carbon Dioxide 29 mmol/L (21-32) 10/19/22 06:23 Anion Gap 6 (3-11) 10/19/22 06:23 BUN 22 mg/dl (6-23) 10/19/22 06:23 Creatinine 0.89 mg/dl (0.6-1.4) 10/19/22 06:23 Est Cr Clr Drug Dosing 86.1 ml/min 10/19/22 06:23 Est GFR ( Amer) 92.9 ml/min 10/19/22 06:23 Est GFR (Non-Af Amer) 80.2 ml/min 10/19/22 06:23 BUN/Creatinine Ratio 24.7 (10-20) H 10/19/22 06:23 Glucose 168 mg/dl (70-99(Fasting)) H 10/19/22 06:23 POC Glucose 135 mg/dl (70-99) H 10/19/22 11:22 Estimat Average Glucose 154 mg/dl 10/11/22 05:22 Hemoglobin A1c 7.0 % (4.5-5.6) H 10/11/22 05:22 Calcium 8.5 mg/dl (8.6-10.3) L 10/19/22 06:23 Phosphorus 3.7 mg/dl (2.5-4.9) 10/19/22 06:23 Magnesium 1.9 mg/dl (1.7-2.4) 10/16/22 07:15 Total Bilirubin 1.5 mg/dl (0.2-1.0) H 10/12/22 04:44 AST 12 U/L (13-39) L 10/12/22 04:44 ALT 9 U/L (7-52) 10/12/22 04:44 Alkaline Phosphatase 49 U/L (34-104) 10/12/22 04:44 Lactate Dehydrogenase 189 U/L (86-244) 10/11/22 14:14 Troponin I High Sens 17.5 pg/ml (0-20) 10/11/22 11:57 Total Protein 6.0 gm/dl (6.0-8.3) 10/12/22 04:44 Albumin 3.3 gm/dl (3.4-5.0) L 10/12/22 04:44 Globulin 2.7 gm/dl (2.5-4.0) 10/12/22 04:44 Albumin/Globulin Ratio 1.2 (0.9-2) 10/12/22 04:44 Lipase < 3 U/L (11-82) L 10/10/22 19:29 Procalcitonin 0.13 ng/ml (0-0.5) 10/11/22 11:57 Urine Color Dark Yellow 10/10/22 21:05 Urine Appearance Cloudy (Clear) A 10/10/22 21:05 Urine pH 5.5 (4.5-7.5) 10/10/22 21:05 Ur Specific [place] > 1.045 (1.000-1.030) H 10/10/22 21:05 Urine Protein 2+ (Negative) H 10/10/22 21:05 Urine Glucose (UA) Trace (Negative) H 10/10/22 21:05 Urine Ketones Trace (Negative) H 10/10/22 21:05 Urine Blood 2+ (Negative) H 10/10/22 21:05 Urine Nitrite Positive (Negative) A 10/10/22 21:05 Urine Bilirubin Negative (Negative) 10/10/22 21:05 Urine Urobilinogen Negative (Negative) 10/10/22 21:05 Ur Leukocyte Esterase Trace (Negative) H 10/10/22 21:05 Urine WBC (Auto) >30 /hpf (0-5) H 10/10/22 21:05 Urine RBC (Auto) 0-4 /hpf (0-4) 10/10/22 21:05 U Hyaline Cast (Auto) 1-5 /lpf (0-5) 10/10/22 21:05 U Epithel Cells (Auto) 0-5 /lpf (0-5) 10/10/22 21:05 Urine Bacteria (Auto) 4+ (Negative) H 10/10/22 21:05 Granular Casts 1-5 /lpf (0) H 10/10/22 21:05 Fluid Neutrophils % 3 % 10/11/22 13:45 Fluid Lymphocytes % 87 % 10/11/22 13:45 Fluid [place] % 10 % 10/11/22 13:45 Fluid Comment 10/11/22 13:45 Pleural Fluid Source Right Lung 10/11/22 13:45 Pleural Color Other 10/11/22 13:45 Pleural Appearance Turbid 10/11/22 13:45 Pleural pH 7.44 (7.3-7.4) H 10/11/22 13:45 Pleural WBC (Auto) 4101 /uL 10/11/22 13:45 Pleural RBC (Auto) 55240 /uL 10/11/22 13:45 Pleural Total Protein 5.1 gm/dl 10/11/22 13:45 Pleural LDH 91 U/L 10/11/22 13:45 Pleural Glucose 150 mg/dl 10/11/22 13:45 Pleural Amylase 12 U/L 10/11/22 13:45 Pleural Cholesterol 39 mg/dL 10/11/22 13:45 Nasal Screen MRSA (PCR) Negative (Negative) 10/11/22 12:27 SARS-CoV-2 (PCR) NEGATIVE (Negative) 10/10/22 20:30 Influenza Type A (PCR) Negative (Neg) 10/10/22 20:30 Influenza Type B (PCR) Negative (Neg) 10/10/22 20:30 RSV (RT-PCR) Negative (Neg) 10/10/22 20:30 Ref Lab Test Result 10/11/22 13:45 Impressions Abdomen/Pelvis CT 10/10/22 19:40 CR Exam(s): CT ABDOMEN + PELVIS With Contrast IV Amt: 94ML OPITRAY 320 EXAM: CT Abdomen and Pelvis With Intravenous Contrast CLINICAL HISTORY: Pain and nausea. TECHNIQUE: Axial computed tomography images of the abdomen and pelvis with intravenous contrast. CTDI is 27.91 mGy and DLP is 1481.01 mGy-cm. Automated exposure control was utilized for the study. A dose lowering technique was utilized adhering to the principles of ALARA. CONTRAST: Patient received 94ML OPITRAY 320 of IV contrast COMPARISON: CT abdomen and pelvis 06/10/2018 FINDINGS: Lung bases: Moderate right airspace opacity with adjacent atelectasis. ABDOMEN: Liver: Unremarkable. No mass. Gallbladder and bile ducts: Unremarkable. No calcified stones. No ductal dilation. Pancreas: Unremarkable. No mass. No ductal dilation. Spleen: Unremarkable. No splenomegaly. Adrenals: Unremarkable. No mass. Kidneys and ureters: There is a simple right renal cyst. There is a hyperdense right renal cyst measuring 2.2 cm. No hydronephrosis. Stomach and bowel: Small bowel obstruction with a transition point in the left lower quadrant pain No mucosal thickening. PELVIS: Appendix: No findings to suggest acute appendicitis. Bladder: Unremarkable. No mass. Reproductive: Unremarkable as visualized. ABDOMEN and PELVIS: Intraperitoneal space: Unremarkable. No free air. No significant fluid collection. Bones/joints: There are degenerative changes of the spine. No fracture. No dislocation. Soft tissues: Unremarkable. Vasculature: Moderate atherosclerosis. No abdominal aortic aneurysm. Lymph nodes: Unremarkable. No enlarged lymph nodes. IMPRESSION: 1. Small bowel obstruction with a transition point in the left lower quadrant pain 2. There is a hyperdense right renal cyst measuring 2.2 cm. This is new since the prior examination. This is concerning for neoplasm. 3. Moderate right airspace opacity with adjacent atelectasis. Communications: Call Doctor Pneumoperitoneum, new or unexpected Electronically signed by: Emmie Nash MD 10/10/22 22:[address] 10/12/22 14:07 CT chest diagnostic wo con CLINICAL HISTORY: chylous effusion TECHNIQUE: Multidetector row helical CT of the chest was performed. Coronal and sagittal reformations were obtained. Automated dose lowering techniques and/or adjustment according to patient size were utilized for this exam. CT DOSE: 706.57 mGy.cm Comparison: Comparison is made to CT chest 10/11/2022 FINDINGS: Lungs and pleura: Bilateral pleural effusions are seen, right greater than left, with underlying atelectasis. Heart and pericardium: Aortic valvular calcifications are seen. Vessels: Severe atherosclerotic changes in the aorta and coronary arteries. P ulmonary trunk measures 41 mm in diameter. Mediastinum and marianna: Subcentimeter lymph nodes are seen. Chest wall and lower neck: Small thyroid nodules are noted which do not require follow-up by ACR criteria. Abdomen: Unremarkable. And enteric tube extends into the stomach, the tip is not visualized. Bones: Degenerative changes in the thoracic spine. Partial visualization of ACDF. IMPRESSION: 1. Redemonstration of small right and trace left pleural effusions. The right effusion may be minimally decreased from prior exam. Underlying atelectasis is seen. 2. Partially calcified mediastinal lymph nodes compatible with prior granulomatous disease. 3. Pulmonary hypertension. ACT 112: Negative or not required by law. Electronically signed by: Israel Harper M.D. 10/12/2022 4:27 PM KUB X-Ray 10/14/22 09:15 KUB HISTORY: ff up abdominal pain post surgery COMPARISON: KUB 10/11/2022. FINDINGS: A nasogastric tube remains within the stomach. Midline skin birdie are noted. Borderline dilated gas-filled loops of small bowel have improved and measure up to 3.3 cm within the left upper quadrant. There is a mildly distended gas and stool-filled colon measuring up to 10 cm. This favors a postoperative ileus. No renal calculi. No ureteral calculi. No pneumoperitoneum or pneumatosis. IMPRESSION: 1. Borderline dilated gas-filled loops of small bowel have improved. 2. Mildly distended gas and stool-filled colon. This favors a postoperative ileus. 3. Nasogastric tube terminates in the stomach. ACT 112: Negative or not required by law. Electronically signed by: Leo Butt M.D. 10/14/2022 10:23 AM Chest X-Ray 10/16/22 08:53 XR chest 1V portable CLINICAL HISTORY: ff up pleural effusion TECHNIQUE: Single frontal radiograph of the chest was obtained. Comparison: Comparison is made to chest radiograph 10/15/2022 FINDINGS: No lines and tubes are seen. Cardiomegaly is noted. The aortic arch is calcified. Atelectasis is noted in the left lower lung. Small to moderate right pleural effusion is seen. IMPRESSION: Small to moderate right pleural effusion is slightly enlarged from prior exam. ACT 112: Negative or not required by law. Electronically signed by: Israel Harper M.D. 10/16/2022 10:52 AM Pending Results Patient Have Any Pending Studies at Discharge: Yes Discharge Instructions Given to Patient (Per Discharging Provider) SPECIAL CARE INSTRUCTIONS: * Cover incisions and change daily for comfort/drainage. * May use ibuprofen for pain as tolerated. * Expect some swelling and bruising. Call your doctor if: * Temperature above 101 degrees * Pain not relieved by pain medicine ordered * There is increased drainage or redness from any incision * You have any unanswered questions or concerns [phone]. FOLLOW UP VISIT: If not already scheduled, please call the office for a follow-up visit. OFFICE PHONE NUMBER: Dr. San Office PLEASE REFER TO YOUR NEW MEDICATION LIST AND FOLLOW INSTRUCTIONS CAREFULLY. YOUR NEW MEDICATIONS INCLUDE: Augmentin-antibiotic for pneumonia Amlodipine-for better blood pressure control MiraLAX-stool softener, to prevent constipation YOU NEED TO BE SEEN BY A UROLOGIST TO EVALUATE A RIGHT KIDNEY GROWTH. YOUR PRIMARY CARE PHYSICIAN CAN ASSIST WITH THE REFERRAL. PLEASE CALL YOUR PRIMARY CARE PHYSICIAN OR RETURN TO THE ER IF WITH WORSENING OF SYMPTOMS, INCLUDING Abdominal pain, distention, nausea or vomiting, fevers or chills, shortness of breath, chest pain, changes with urination including blood in the urine, difficulty with urination, etc. FOLLOW UP WITH PRIMARY CARE PHYSICIAN OUTLINED ABOVE. FOLLOW-UP WITH GENERAL SURGEON DR. NAHEED SAN IN 1 TO 2 WEEKS. PLEASE CALL HIS OFFICE FOR AN APPOINTMENT. CONTACT INFORMATION OUTLINED ABOVE. Total Time Total Time Spent Total Time Spent (In Minutes): > 30 minutes
[2022-10-19] MEDS ORDERED: BACITRACIN OINT 15 GM TUBE EXT SCH (21:00)
== END 2022-10-19 14:01 | disposition home health service (06) | DRG 335 ==
LOC: ED 19:14 → 2W 10-11 01:30 → SUATTDRO 10-11 01:30 → 2W 10-11 02:12 → 1E 10-11 11:37 → 2S 10-12 14:48